=== PATIENT | female | born 1960 | race Caucasian/White ===

== ENCOUNTER 2016-12-07 20:07 | Inpatient (IN) ==
[2016-12-07] MEDS ORDERED: Ondansetron 4 MG/2 ML VIAL IVP ONE (20:41)
[2016-12-07] MEDS ORDERED: Pantoprazole 40 MG VIAL IVP ONE (20:41)
[2016-12-07] MEDS ORDERED: 0.9 % Sodium Chloride 1,000 ML IVC ONE (20:41)
--- NOTE | 2016-12-07 20:48 | Emergency Department Note ---
Disposition Clinical Impression: Bright red blood per rectum, Abdominal pain, acute, left lower quadrant, Generalized weakness, History of blood clots, Pain of left calf, Noncompliance with medications, Acute renal insufficiency, Fall from ground level, Left hip pain, Unable to ambulate GI bleed Qualifiers: GI bleed type/associated pathology: anorectal hemorrhage Qualified Code(s): K62.5 - Hemorrhage of anus and rectum Disposition: Admitted As Inpatient Condition: Good Time of Disposition: 00:14 GI Bleed HPI - General Chief complaint: ED General Medical Stated complaint: Multi Complaint Time Seen by Provider: 12/07/16 20:23 Source: patient, family Mode of arrival: ambulatory Limitations: no limitations Nursing Notes Reviewed: Yes Vital Signs Reviewed: Yes - History of Present Illness HPI Narrative: Patient is a 56-year-old female brought in via POC for GI bleed 3 days. Patient states that 3 days ago so bouts of vomiting and then passed out unknown amount of time. Unsure if she hit her head. Pt was taken to [facility] and was diagnosed with hypothermia and discharged home that evening. Patient states she started having bowel movements with occult bleeding 4, 3 days ago, 4, 2 days ago, 4, 1 days ago - Related Data Allergies Allergy/AdvReac Type Severity Reaction Status Date / Time codeine Allergy Hives Verified 12/07/16 20:11 Penicillins [PCN] Allergy See Verified 12/07/16 20:11 Comments Review of Systems: Patient complains of lightheadedness, vision change, generalized weakness, left lower extremity calf pain, left lower quadrant abdominal pain and chills All systems ED: reviewed and negative except as stated. 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 Time: 20:50 Reevaluation #2: Pt has occult blood per rectum with good sphincter tone Time: 21:48 - Consultations Consultation #1: Dr. Miles of [facility] reexamined CT scan abdomen and pelvis was found no fractures in the pelvis, iliac crests, or lumbar spine. There was lumbar spinal canal degeneration and mild stenosis. Time: 23:24 Consultation #2: Dr. Patrick the hospitalist has accepted patient for admission Time: 00:02 Vital Signs Temperature 98.3 F 12/07/16 20:12 Pulse Rate 104 12/07/16 20:12 Respiratory Rate 20 12/07/16 20:12 Blood Pressure 129/82 12/07/16 20:12 O2 Sat by Pulse Oximetry 96 12/07/16 20:12 Temperature 98.1 F 12/08/16 23:24 Pulse Rate 84 12/08/16 23:24 Respiratory Rate 17 12/08/16 23:24 Blood Pressure 173/86 12/08/16 23:24 O2 Sat by Pulse Oximetry 95 12/08/16 23:24 Oxygen Delivery Oxygen Delivery Room Air GI Bleed - [facility] Narrative Medical decision making narrative: Patient presents secondary to fall. 2 days ago from ground-level followed by multiple bouts of nausea and vomiting was seen at [facility] worked up and discharged. Discharge diagnosis was hypothermia. Patient tends began to have multiple bouts of bright red blood per rectum with follow-up weakness and increase pain and left lower back around the iliac crest and difficulty ambulating. Patient also has blurriness in vision bilaterally. Patient's concerning for GI bleed and weakness secondary to anemia. Cause of GI bleed differential included diverticulosis, AVM, polyp, GI cancer, aortoenteric fistula, mesenteric ischemia. CT abdomen and pelvis was taken which showed none of the above. Patient continued to have pain in her hip. Asked radiologists to take a closer look at the images concerning patient's hip and lower back. No fractures were found patient does have chronic degenerative changes and mild stenosis but nothing to explain patient's pain symptoms. On reexamination patient's pain was found not to be at her hip but down at the left calf. Patient does have intactdistal pulses at dorsal pedal and posterior tibial bilaterally equal 2+. Distal extremities are warm to touch equally. Patient then informed us that she was worried for a clot and then she stated she is supposed to be on Coumadin but has been offered past 2 months because she has been between providers. Earlier in patient's examination she was asked if she was on Coumadin but she said no and made no comment that she was not on Coumadin because of noncompliance. Patient does has an extensive cardiac history with heart surgery, endocarditis and A. fib. Patient's physical culpable test was positive the patient's hemoglobin is currently 14.3 even with patient's history of gross amounts of bright red blood per rectum for the past 3 days. Given the patient's is very small and thin almost cachectic, it does not add up. Patient does have an elevation of her creatinine for renal insufficiency that may be secondary to dehydration. Patient's was started on maintenance fluids normal saline. At this time plan is to admit patient for further treatment and evaluation for possible blood clots/DVT of the leg. Doppler will be ordered for the morning. Of note with considered starting patient back on Coumadin but patient currently has active GI bleed. - Lab Data Lab results reviewed: Yes I reviewed the patient's lab results. Lab results narrative: Short CBC 12/07/16 Range/Units 20:55 WBC 12.7 H (4.3-11.1) K/mcL Hgb 14.3 (11.5-15.4) g/dL Hct 44.2 (35.3-44.9) % Plt Count 165 (140-400) K/mcL Neutrophils # 9.4 H (1.6-8.9) K/mcL BMP 12/07/16 Range/Units 20:55 Sodium 139 (136-145) mEq/L Potassium 4.0 (3.5-4.5) mEq/L Chloride 103 (98-109) mEq/L Carbon Dioxide 25 (19-29) mEq/L BUN 26 H (7-20) mg/dL Creatinine 1.55 H (0.57-1.11) mg/dL Glucose 135 H (70-99) mg/dL Calcium 9.2 (8.6-10.8) mg/dL Cardiac Enzymes 12/07/16 Range/Units 20:55 Troponin I 0.01 (0-0.03) ng/mL Liver Function 12/07/16 Range/Units 20:55 Total Bilirubin 0.3 (0.2-1.2) mg/dL AST 104 H (5-34) Units/L ALT 53 (0-55) Units/L Alkaline Phosphatase 98 (38-126) Units/L Albumin 3.3 L (3.5-5.0) g/dL Result diagrams: 12/08/16 15:57 12/07/16 20:55 Lab Results 12/07/16 12/07/16 12/07/16 Range/Units 20:55 20:55 20:55 WBC 12.7 H (4.3-11.1) K/mcL RBC 5.09 H (3.82-4.97) M/mcL Hgb 14.3 (11.5-15.4) g/dL Hct 44.2 (35.3-44.9) % MCV 86.8 (83.0-100.0) fL MCH 28.1 (28.0-33.3) pg MCHC 32.4 (31.6-35.5) g/dL RDW 13.2 (11.5-14.5) % Plt Count 165 (140-400) K/mcL MPV 10.5 (9.4-12.4) fL Immature Gran % 0.3 (0-4) % Seg Neutrophils % 74.6 % Lymphocytes % 16.6 % Monocytes % 7.7 % Eosinophils % 0.6 % Basophils % 0.2 % Neutrophils # 9.4 H (1.6-8.9) K/mcL Lymphocytes # 2.1 (0.6-4.6) K/mcL Monocytes # 1.0 (0.0-1.3) K/mcL Eosinophils # 0.1 (0.0-0.6) K/mcL Basophils # 0.0 (0.0-0.2) K/mcL PT 12.3 H (9.4-12.1) Seconds INR 1.1 APTT 28.2 (26.0-36.0) Seconds Sodium 139 (136-145) mEq/L Potassium 4.0 (3.5-4.5) mEq/L Chloride 103 (98-109) mEq/L Carbon Dioxide 25 (19-29) mEq/L BUN 26 H (7-20) mg/dL Creatinine 1.55 H (0.57-1.11) mg/dL Est GFR ( Amer) 42 L (> 60) Est GFR (Non-Af Amer) 34 L (> 60) BUN/Creatinine Ratio 17 (6-26) Glucose 135 H (70-99) mg/dL Calculated Osmolality 295 (280-300) Lactic Acid (0.5-2.2) mmol/L Calcium 9.2 (8.6-10.8) mg/dL Magnesium 2.0 (1.6-2.6) mg/dL Total Bilirubin 0.3 (0.2-1.2) mg/dL AST 104 H (5-34) Units/L ALT 53 (0-55) Units/L Alkaline Phosphatase 98 (38-126) Units/L Troponin I (0-0.03) ng/mL Serum Total Protein 7.1 (6.0-8.3) g/dL Albumin 3.3 L (3.5-5.0) g/dL Globulin 3.8 H (2.4-3.5) g/dL Albumin/Globulin Ratio 0.9 L (1.1-2.2) Stool Occult Blood (Negative) Specimen Rejected Blood Type Antibody Screen Antibody Identification 12/07/16 12/07/16 12/07/16 Range/Units 20:55 20:55 20:55 WBC (4.3-11.1) K/mcL RBC (3.82-4.97) M/mcL Hgb (11.5-15.4) g/dL Hct (35.3-44.9) % MCV (83.0-100.0) fL MCH (28.0-33.3) pg MCHC (31.6-35.5) g/dL RDW (11.5-14.5) % Plt Count (140-400) K/mcL MPV (9.4-12.4) fL Immature Gran % (0-4) % Seg Neutrophils % % Lymphocytes % % Monocytes % % Eosinophils % % Basophils % % Neutrophils # (1.6-8.9) K/mcL Lymphocytes # (0.6-4.6) K/mcL Monocytes # (0.0-1.3) K/mcL Eosinophils # (0.0-0.6) K/mcL Basophils # (0.0-0.2) K/mcL PT (9.4-12.1) Seconds INR APTT (26.0-36.0) Seconds Sodium (136-145) mEq/L Potassium (3.5-4.5) mEq/L Chloride (98-109) mEq/L Carbon Dioxide (19-29) mEq/L BUN (7-20) mg/dL Creatinine (0.57-1.11) mg/dL Est GFR ( Amer) (> 60) Est GFR (Non-Af Amer) (> 60) BUN/Creatinine Ratio (6-26) Glucose (70-99) mg/dL Calculated Osmolality (280-300) Lactic Acid 1.5 (0.5-2.2) mmol/L Calcium (8.6-10.8) mg/dL Magnesium (1.6-2.6) mg/dL Total Bilirubin (0.2-1.2) mg/dL AST (5-34) Units/L ALT (0-55) Units/L Alkaline Phosphatase (38-126) Units/L Troponin I 0.01 (0-0.03) ng/mL Serum Total Protein (6.0-8.3) g/dL Albumin (3.5-5.0) g/dL Globulin (2.4-3.5) g/dL Albumin/Globulin Ratio (1.1-2.2) Stool Occult Blood (Negative) Specimen Rejected Blood Type B POSITIVE Antibody Screen POSITIVE Antibody Identification Anti-K 12/07/16 12/08/16 12/08/16 Range/Units 22:00 04:36 10:52 WBC 12.9 H (4.3-11.1) K/mcL RBC 4.71 (3.82-4.97) M/mcL Hgb 13.2 13.1 (11.5-15.4) g/dL Hct 40.5 41.3 (35.3-44.9) % MCV 87.7 (83.0-100.0) fL MCH 27.8 L (28.0-33.3) pg MCHC 31.7 (31.6-35.5) g/dL RDW 13.3 (11.5-14.5) % Plt Count 131 L (140-400) K/mcL MPV 10.8 (9.4-12.4) fL Immature Gran % (0-4) % Seg Neutrophils % % Lymphocytes % % Monocytes % % Eosinophils % % Basophils % % Neutrophils # (1.6-8.9) K/mcL Lymphocytes # (0.6-4.6) K/mcL Monocytes # (0.0-1.3) K/mcL Eosinophils # (0.0-0.6) K/mcL Basophils # (0.0-0.2) K/mcL PT (9.4-12.1) Seconds INR APTT (26.0-36.0) Seconds Sodium (136-145) mEq/L Potassium (3.5-4.5) mEq/L Chloride (98-109) mEq/L Carbon Dioxide (19-29) mEq/L BUN (7-20) mg/dL Creatinine (0.57-1.11) mg/dL Est GFR ( Amer) (> 60) Est GFR (Non-Af Amer) (> 60) BUN/Creatinine Ratio (6-26) Glucose (70-99) mg/dL Calculated Osmolality (280-300) Lactic Acid (0.5-2.2) mmol/L Calcium (8.6-10.8) mg/dL Magnesium (1.6-2.6) mg/dL Total Bilirubin (0.2-1.2) mg/dL AST (5-34) Units/L ALT (0-55) Units/L Alkaline Phosphatase (38-126) Units/L Troponin I (0-0.03) ng/mL Serum Total Protein (6.0-8.3) g/dL Albumin (3.5-5.0) g/dL Globulin (2.4-3.5) g/dL Albumin/Globulin Ratio (1.1-2.2) Stool Occult Blood Positive A (Negative) Specimen Rejected Blood Type Antibody Screen Antibody Identification 12/08/16 Range/Units 10:52 WBC (4.3-11.1) K/mcL RBC (3.82-4.97) M/mcL Hgb (11.5-15.4) g/dL Hct (35.3-44.9) % MCV (83.0-100.0) fL MCH (28.0-33.3) pg MCHC (31.6-35.5) g/dL RDW (11.5-14.5) % Plt Count (140-400) K/mcL MPV (9.4-12.4) fL Immature Gran % (0-4) % Seg Neutrophils % % Lymphocytes % % Monocytes % % Eosinophils % % Basophils % % Neutrophils # (1.6-8.9) K/mcL Lymphocytes # (0.6-4.6) K/mcL Monocytes # (0.0-1.3) K/mcL Eosinophils # (0.0-0.6) K/mcL Basophils # (0.0-0.2) K/mcL PT (9.4-12.1) Seconds INR APTT (26.0-36.0) Seconds Sodium (136-145) mEq/L Potassium (3.5-4.5) mEq/L Chloride (98-109) mEq/L Carbon Dioxide (19-29) mEq/L BUN (7-20) mg/dL Creatinine (0.57-1.11) mg/dL Est GFR ( Amer) (> 60) Est GFR (Non-Af Amer) (> 60) BUN/Creatinine Ratio (6-26) Glucose (70-99) mg/dL Calculated Osmolality (280-300) Lactic Acid (0.5-2.2) mmol/L Calcium (8.6-10.8) mg/dL Magnesium (1.6-2.6) mg/dL Total Bilirubin (0.2-1.2) mg/dL AST (5-34) Units/L ALT (0-55) Units/L Alkaline Phosphatase (38-126) Units/L Troponin I (0-0.03) ng/mL Serum Total Protein (6.0-8.3) g/dL Albumin (3.5-5.0) g/dL Globulin (2.4-3.5) g/dL Albumin/Globulin Ratio (1.1-2.2) Stool Occult Blood (Negative) Specimen Rejected Contaminated Blood Type Antibody Screen Antibody Identification - Radiology Data Radiology results reviewed: Yes I reviewed the patient's radiology results. Chest X-Ray 12/07/16 20:41 IMPRESSION: 1. Hyperinflated lungs which probably represent underlying emphysema. 2. Otherwise no acute cardiopulmonary findings. D/ / 12/07/2016 21:19:44 Saw Patel MD / mitchel Interpreting Provider: Saw Patel MD Abdomen/Pelvis CT 12/07/16 21:46 IMPRESSION: 1. The study is limited due to lack of IV contrast. 2. Otherwise no definite acute findings within the abdomen and pelvis. 3. Small 16 mm benign left adrenal adenoma, which no further follow-up or workup is necessary. 4. Bi-iliac arterial stents in place. The patency of which is not evaluated on this noncontrast study. 5. Few scattered punctate calcifications associated with the pancreas, which could represent chronic pancreatitis. 6. A few scattered colonic diverticula without evidence of diverticulitis. D/ / 12/07/2016 22:53:23 Saw Patel MD / mitchel Interpreting Provider: Saw Patel MD - EKG Data EKG attestation: Yes I reviewed and interpreted this EKG. EKG results narrative: EKG taken 12/07/2016 2032 hrs. shows sinus tachycardia with first degree AV block, patient's QT interval looks close for QT prolongation. No ST elevations or depressions and Attestation Statement - Attestation Attestation: I personally interviewed and examined this patient and my medical decision- making was reviewed with the Resident Physician, Dr. Roque. I agree with the documented findings, disposition and treatment plan as described except to the extent set forth below. Patient is a 56-year-old white female who presents to the emergency department with a family member with multiple complaints today. Apparently patient was initially evaluated on Wednesday at an outside medical facility emergency Department for a syncopal episode that she had at home. Patient states she was outside on her property and had a sudden onset of nausea and vomiting. Patient states she had repeated episodes of nonbloody nonbilious emesis then was very lightheaded and became diaphoretic and had a syncopal episode. Feeling of vertigo to the emergency department for evaluation and she states she was diagnosed with "hypothermia" was observed for a short period of time and then discharged home. Patient states upon arriving home she is "just not been feeling well", complaining of some exacerbation of low back pain which she has chronically since falling, pain that radiates down into the left lower extremity. Patient also complains of some generalized abdominal pain and bright red per rectum which she has been seeing in her stool for the last 3 days. Patient denies any history of anticoagulation, no prior history of GI bleeding. Patient states that since this time she has been feeling gradually increasing generalized weakness and difficulty ambulating due to her worsening generalized weakness. Patient denies any focal weakness, numbness and speech is clear. I agree with patient's physical exam findings as documented. On physical exam patient was found to be grossly guaiac positive but vital signs are stable and she is in no acute distress. 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 She underwent lab evaluation as well as CT imaging of her abdomen and pelvis for further evaluation of this recent abdominal pain with bright red blood per rectum. We also asked that they visualize her lumbar spine as she is complaining of this low back pain to the that she has not injured anything in the fall related to her syncope that she was evaluated for on Wednesday. EKG shows no acute ischemic changes. Laboratory assessment shows acute renal insufficiency, suspect some mild dehydration. No other lab abnormalities were appreciated. CT abdomen and pelvis was negative for any acute process. The decision was made due to overlying weakness, dehydration, and rectal bleeding that we would admit the patient for further evaluation and management. 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 Patient is hemodynamically stable and has tenderness to palpation in the left calf muscle. She is neurovascularly intact with good distal pulses and color. At this time we spoke to the hospitalist for admission and also placed an order for the morning for a Doppler ultrasound of the left lower extremity. We cannot anticoagulate the patient until that time due to her rectal bleeding. Hemoglobin and hematocrit are within normal limits at this time. Hospitalist accepted the patient for admission for further evaluation and management.
[2016-12-07 21:03] LABS: Basophils % 0.2 %; Eosinophils # 0.1 K/mcL (0.0-0.6); Eosinophils % 0.6 %; Hematocrit 44.2 % (35.3-44.9); Hemoglobin 14.3 g/dL (11.5-15.4); Immature Granulocytes % 0.3 % (0-4); Lymphocytes # 2.1 K/mcL (0.6-4.6); Lymphocytes % 16.6 %; Mean Corpuscular HGB Conc 32.4 g/dL (31.6-35.5); Mean Corpuscular Hemoglobin 28.1 pg (28.0-33.3); Mean Corpuscular Volume 86.8 fL (83.0-100.0); Mean Platelet Volume 10.5 fL (9.4-12.4); Monocytes % 7.7 %; Neutrophils # 9.4 K/mcL (1.6-8.9); Platelet Count 165 K/mcL (140-400); Red Blood Count 5.09 M/mcL (3.82-4.97); Red Cell Distribution Width 13.2 % (11.5-14.5); Segmented Neutrophils % 74.6 %
[2016-12-07 21:09] LABS: INR 1.1; Prothrombin Time 12.3 Seconds (9.4-12.1)
[2016-12-07 21:11] LABS: Activated Partial Thrombo Time 28.2 Seconds (26.0-36.0)
[2016-12-07 21:16] LABS: Albumin 3.3 g/dL (3.5-5.0); Albumin/Globulin Ratio 0.9 (1.1-2.2); Calcium 9.2 mg/dL (8.6-10.8); Globulin 3.8 g/dL (2.4-3.5); Total Protein 7.1 g/dL (6.0-8.3)
[2016-12-07 22:11] LABS: Bilirubin,Total 0.3 mg/dL (0.2-1.2)
[2016-12-07] MEDS ORDERED: *HR* HYDROcodone/Acet 5/325 mg TABLET PO ONE (22:22)
[2016-12-07] MEDS ORDERED: *HR* OxyCODONE/APAP 5/325 TABLET PO ONE (22:43)
[2016-12-07] MEDS ORDERED: 0.9 % Sodium Chloride 1,000 ML IVC SCH (23:45)
--- NOTE | 2016-12-08 03:54 | Internal Med History&Physical ---
Date of Encounter: 12/08/16 Time of Encounter: 02:00 Assessment and Plan (1) DVT prophylaxis Current visit: Yes Status: Acute We will hold pharmacological prophylaxis due to acute GI bleed. Avoid SCDs due to pain in the left calf and possible DVT. We will encourage ambulation once patient can tolerate bearing weight. (2) GI bleed Current visit: Yes Status: Acute Patient reports 3 days of multiple episodes of rectal bleeding. FOBT done in the emergency department was positive. Consult gastroenterology. Nothing by mouth. IV Protonix. Hemoglobin and hematocrit every 6 hours. Qualifiers: GI bleed type/associated pathology: anorectal hemorrhage Qualified Code(s) : K62.5 - Hemorrhage of anus and rectum (3) Bright red blood per rectum Current visit: Yes Status: Acute (4) History of blood clots Current visit: Yes Status: Acute Hold warfarin due to acute GI bleed. INR is 1.1 consistent with the history she gives that she has not been taking warfarin for 2 months. (5) Pain of left calf Current visit: Yes Status: Acute We will treat this with oxycodone. We will obtain lower extremity venous Dopplers to rule out DVT. Hold off on anticoagulation due to active GI bleed. (6) Noncompliance with medications Current visit: Yes Status: Acute We will emphasize the importance of medication compliance. We will provide an appointment in resident clinic upon discharge. (7) COPD (chronic obstructive pulmonary disease) Current visit: Yes Status: Acute No evidence of exacerbation. We will treat this with inhaled albuterol and Atrovent. Qualifiers: COPD type: chronic bronchitis Chronic bronchitis type: simple Qualified Code(s): J41.0 - Simple chronic bronchitis (8) Tobacco abuse Current visit: Yes Status: Acute I advised smoking cessation. Internal Medicine - H&P: HPI Chief complaint: Lower extremity pain Admitted From: Emergency Dept Plans for Post Hospital Care: Home History of present illness: Ms. Chow is a 56 year old female with past medical history significant for atrial fibrillation, previously on anticoagulation with Coumadin, not currently anticoagulated who presented to the hospital for evaluation flank pain as well as rectal bleeding. 3 days ago she had an episode of syncope and she presented to [facility] she was evaluated, found to have hypothermia and discharged home. Soon thereafter she started having multiple episodes of rectal bleeding 3-4 at home without abdominal pain or rectal pain. Around the same time she started having left lower extremity sharp pain which she grades as severe, worse with bearing weight, makes making it difficult for her to walk. The course has been increasing over the last 2 days and she noted some associated swelling in the left lower extremity. A 10 point review of systems positive positive for depression, nausea, rectal bleed as above, shortness of breath, wheezing, chest pain, urinary frequency, chronic joint aches and pains. Past Med Surg Social Fam HX - Past Medical History Medical history: atrial fibrillation, COPD, DVT, hypertension, other Psychiatric history: no psych history - Past Surgical History Surgical History: angioplasty/stent, heart valve replacement - Social History Smoking Status: Current every day smoker Packs per day: 1 Smokeless Tobacco Status: No Alcohol use: none Drug use: none - Family History Father Hx Family Endocrine Disorder: Yes (DIABETES MELLITUS.) Internal Medicine - H&P: Meds Albuterol Neb [AccuNeb] 12/08/16 [History] Albuterol Sulfate [Proair Respiclick] 180 mcg IH QID PRN 12/08/16 [History] Gabapentin [Neurontin] 300 mg PO TID 12/08/16 [History] Isosorbide MONOnitrate [Isosorbide Mononitrate] 10 mg PO TID 12/08/16 [History] Metoprolol Tartrate [Lopressor] 12.5 mg PO TID 12/08/16 [History] Oxycodone HCl/Acetaminophen [Percocet 10-325 mg Tablet] 1 each PO Q6HR PRN 12/08 [History] Warfarin Sodium [Coumadin] 3 mg PO QTUTHSA 12/08/16 [History] Warfarin Sodium [Coumadin] 4 mg PO [id number] 12/08/16 [History] Allergies codeine Allergy (Verified 12/07/16 20:11) Hives Penicillins [PCN] Allergy (Verified 12/07/16 20:11) See Comments All Systems PM: A 10-system review of systems was performed and is negative for pertinent findings except as documented above in the HPI. - Constitutional Vitals: Temp Pulse Resp BP Pulse Ox 98.3 F 94 16 127/86 94 12/08/16 03:35 12/08/16 03:35 12/08/16 03:35 12/08/16 03:35 12/08/16 03:35 General appearance: Present: A&O X 3 - Eye Eye exam: Present: PERRL, conjuntiva pink, sclera anicteric Pupils: Present: PERRL - Respiratory Respiratory exam: Present: prolonged expiratory phase, wheezes (Bilateral expiratory wheezes). Absent: accessory muscle use, rales, rhonchi - Cardiovascular Cardiovascular exam: Present: RRR, +S1, +S2. Absent: diastolic murmur, gallop, rubs, systolic murmur - GI/Abdominal GI/Abdominal exam: Present: normal bowel sounds, soft, no peritoneal signs. Absent: distended, tenderness - Extremities Exam Extremities exam: Present: pedal edema (Left lower extremity nonpitting edema and calf compression tenderness), warm, radial pulses palpable and symmetrical. Absent: calf tenderness, cyanotic - Neurological Exam Neurological exam: Present: CN II-XII intact, oriented X3, no focal deficits. Absent: pronater drift, facial droop, speech deficit - Skin Skin exam: Present: dry, intact Internal Med - H&P Results - Labs CBC & Chem 7: 12/07/16 20:55 12/07/16 20:55
[2016-12-08] MEDS ORDERED: Acetaminophen 325 MG TABLET PO PRN (04:09)
[2016-12-08] MEDS ORDERED: Naloxone 0.4 MG/ML INJ IVP PRN (04:09)
[2016-12-08] MEDS: *HR* HYDROmorphone (PF) 1 MG/ML SYRINGE IVP PRN ×3 (05:26→14:13)
[2016-12-08] MEDS: Pantoprazole 40 MG VIAL IVP SCH ×2 (05:28→17:16)
[2016-12-08 05:51] LABS: Hematocrit 40.5 % (35.3-44.9); Hemoglobin 13.2 g/dL (11.5-15.4)
[2016-12-08 06:08] LABS: Bilirubin,Urine Negative (Negative); Blood,Urine Small (Negative); Clarity,Urine Clear (Clear); Color,Urine Yellow (Yellow); Glucose,Urine (UA) Normal (Normal); Ketones,Urine Negative (Negative); Leukocyte Esterase,Urine Negative (Negative); Nitrite,Urine Negative (Negative); Protein,Urine Negative (Neg-Trace); Specific Gravity,Urine 1.015 (1.010-1.025); Urobilinogen,Urine Normal (Normal)
[2016-12-08 06:10] LABS: Bacteria,Urine None Seen per hpf (None-Few); Hyaline Casts,Urine None Seen per lpf (None-Few); RBC,Urine 0-3 per hpf (0-3); Squamous Epithelial Cell,Urine Moderate per lpf (None-Few); WBC,Urine 0-3 per hpf (0-3)
[2016-12-08] MEDS: *HR* HYDROcodone/Acet 5/325 mg TABLET PO PRN ×3 (08:32→19:30)
[2016-12-08] MEDS: 0.9 % Sodium Chloride 1,000 ML IVC SCH ×3 (08:33→22:25)
--- NOTE | 2016-12-08 09:48 | Vascular/Endovasc Consult Note ---
Date of Encounter: 12/08/16 Time of Encounter: 08:30 Assessment and Plan (1) Peripheral vascular disease with pain at rest Current Visit: Yes Status: Chronic The patient has a history of peripheral vascular disease. Her CT scan reveals bilateral iliac stents. They appear to be malpositioned within the aorta, particularly on the left. She has an absent left femoral pulse. She has monophasic left tibial signals. Her left REGGIE is consistent with severe disease. She has motor and sensory function in the left lower extremity. She has been scheduled for an angiogram. The risks, benefits and alternatives were discussed and all questions were answered. She expressed understanding and wishes to proceed. The patient may benefit from anticoagulation at this time. Given her recent rectal bleeding, she will receive a low dose heparin drip. Continue with serial hemoglobins. The patient has been typed and screened. (2) GI bleed Current Visit: Yes Status: Chronic The patient had bright red blood per rectum, a GI consult has been ordered. Qualifiers: GI bleed type/associated pathology: anorectal hemorrhage Qualified Code(s) : K62.5 - Hemorrhage of anus and rectum (3) Acute renal insufficiency Current Visit: Yes Status: Acute The patient has an elevated creatinine. She is currently being hydrated. She will need an angiogram. She will receive mucomyst prior to the procedure. (4) COPD (chronic obstructive pulmonary disease) Current Visit: Yes Status: Acute Qualifiers: COPD type: chronic bronchitis Chronic bronchitis type: simple Qualified Code(s): J41.0 - Simple chronic bronchitis (5) Tobacco abuse Current Visit: Yes Status: Acute - History of Present Illness Consult date: 12/08/16 Requesting physician: Omar Patrick Consult reason: Peripheral vascular disease Chief complaint: Left leg pain History of present illness: Ms. Chow is a 56 year old female who has a history of coronary artery disease , atrial fibrillation, COPD and hypertension. She reports that she was not feeling well last week. She reports that she experienced a syncopal episodeand when she awoke, she had left lower extremity pain. She initially went to [facility] and was evaluated. She was told that she had hypothermia and was discharged. The patient continued to have have increased pain in her left leg. She developed swelling and then came to [facility]. She was seen in the ER. She was noted to have bright red blood per rectum and was admitted for a GI bleed. She then underwent a venous duplex and was found to have a left REGGEI of 0.18. Vascular surgery was then consulted for further evaluation. She denies chest pain or shortness of breath. Past Med Surg Social Fam HX - Past Medical History Medical history: atrial fibrillation, COPD, DVT, hypertension, other Psychiatric history: no psych history - Past Surgical History Surgical History: angioplasty/stent, heart valve replacement - Social History Smoking Status: Current every day smoker Packs per day: 1 Smokeless Tobacco Status: No Alcohol use: none Drug use: none - Family History Father Hx Family Endocrine Disorder: Yes (DIABETES MELLITUS.) Medications and Allergies Albuterol Neb [AccuNeb] 3 ml IH Q4-6H PRN 12/08/16 [History] Albuterol Sulfate [Proair Respiclick] 180 mcg IH QID PRN 12/08/16 [History] Gabapentin [Neurontin] 300 mg PO TID 12/08/16 [History] Lisinopril-HCTZ 10-12.5 [Prinzide 10-12.5] 1 tab PO DAILY 12/08/16 [History] Methocarbamol [Robaxin] 500 mg PO Q8H 12/08/16 [History] Metoprolol Tartrate [Lopressor] 50 mg PO BID 12/08/16 [History] Oxycodone HCl/Acetaminophen [Percocet 10-325 mg Tablet] 1 each PO Q6HR PRN 12/08 [History] Allergies codeine Allergy (Verified 12/07/16 20:11) Hives Penicillins [PCN] Allergy (Verified 12/07/16 20:11) See Comments All Systems Review: A 10-system review of systems was performed and is negative for pertinent findings except as documented above in the HPI. Exam Vital Signs, Last 4 Hours Temp Pulse Resp BP Pulse Ox 12/08/16 07:32 98.3 F 100 14 127/92 94 General: Present: Conversant HEENT: Present: Trachea midline, Pupils equal Neck: Absent: JVD, Lymphadenopathy, Left Carotid bruit, Right Carotid bruit Cardiac: Present: Irregular Rhythm Lungs: Present: Normal Breath Sounds, No Wheeze, Rales, Rhonchi Neuro: Present: Alert and responsive, Cranial nerves grossly intact, Motor nerves grossly intact, Sensory nerves grossly intact Abdomen: Present: Soft, Non-tender. Absent: Masses Vascular: Present: Normal capillary refill, Pulse, diminished (left pedal signals are monophasic. Left femoral pulse is absent), Color/Temperature (feet warm), Other Skin: Present: Other (left calf tenderness) Musculoskeletal: Present: No Chest Wall Tenderness Consult Discharge Plan - Plan Instructions: Angiogram (GEN) Referrals: Edda Peña MD [Primary Care Provider] -
[2016-12-08] MEDS ORDERED: *HR* Heparin 5,000 UNIT/ML VIAL IVP ONE (10:08)
[2016-12-08] MEDS ORDERED: *HR* Heparin 5,000 UNIT/ML VIAL IVP PRN (10:08)
[2016-12-08] MEDS ORDERED: Heparin 25,000 UNIT/500 ML D5W 25,000 UNIT/500 ML MLS IVC SCH (10:15)
[2016-12-08] MEDS: *HR* Acetylcysteine 20% 600 MG/3 ML ORAL SYRINGE PO SCH ×2 (11:01→21:09)
[2016-12-08] MEDS ORDERED: 0.9 % Sodium Chloride 1,000 ML ONE ×2 (11:03→12:37)
[2016-12-08] MEDS ORDERED: Heparin 1,000 UNITS/500 mL NS 500 ML ONE (11:03)
[2016-12-08] MEDS ORDERED: *HR* Heparin 10,000 UNIT/10 ML VIAL ONE (11:03)
[2016-12-08] MEDS: Ipratropium/Albuterol Neb 3 ML IH SCH ×3 (11:03→22:36)
--- NOTE | 2016-12-08 11:07 | Gastroenterology Consult Note ---
<Jamil Walton Jacinta - Last Filed: 12/08/16 11:04> Date of Encounter: 12/08/16 Time of Encounter: 10:30 - Assessment and plan (1) Melena Current Visit: Yes Status: Acute Assessment and plan: Hgb 14.3 on admission and 13.2 this morning. Fecal occult blood test was positive in the ED. Plan for EGD tomorrow to r/o esophagitis, gastritis, duodenitis, PUD, MW tear, or AVM. Keep NPO at midnight. (2) Bright red blood per rectum Current Visit: Yes Status: Acute Assessment and plan: Plan for colonoscopy tomorrow. Clear liquid diet today, no red or purple. NPO at midnight. If unable tolerate NuLytely please use MiraLAX prep. If not clear by 6 AM, give 2 tap water enemas. (3) Peripheral vascular disease with pain at rest Current Visit: Yes Status: Chronic Assessment and plan: Heparin drip started per vascular surgery. Will need to hold the heparin drip 4- 6 hours prior to EGD/colonoscopy. - Time Spent With Patient Total time spent is greater than 50% in coordination of care (as documented) at patient's floor/unit and/or counseling patient: GI History of Present Illness - Data of Consult Patient: new to practice Consult date: 12/08/16 Requesting Physician: Carlie Cyr - Consult Narrative Reason for consult: Acute GI bleed History of present illness: Ms. Chow is a 56 year old female with PMHx of A. fib-previously on Coumadin- not currently anticoagulated, COPD, DVT, HTN who presented with flank pain and rectal bleeding. She was recently seen at [facility] due to syncope and was found to have hypotermia and discharged home. She reports bright red blood per rectum for 3 days that started on December 04. Wednesday night and Wednesday morning she reports black tarry stools. She also developed LLE pain, worse with bearing weight, and difficulty ambulating. Vascular surgery has been consulted. We were consulted to evaluate her rectal bleeding. Hgb on admission was 14.3 and this AM Hgb 13.2. Procedures: No record NSAIDs: None Anticoagulation: None Past Med Surg Social Fam HX - Past Medical History Medical history: atrial fibrillation, COPD, DVT, hypertension, other Psychiatric history: no psych history - Past Surgical History Surgical History: angioplasty/stent, heart valve replacement - Social History Smoking Status: Current every day smoker Packs per day: 1 Smokeless Tobacco Status: No Alcohol use: none Drug use: none - Family History Father Hx Family Endocrine Disorder: Yes (DIABETES MELLITUS.) - Gastrointestinal Gastrointestinal: Present: as per HPI - Constitutional Constitutional: as per HPI - EENT Eyes: as per HPI Ears: Present: as per HPI Nose, mouth and throat: Present: as per HPI - Cardiovascular Cardiovascular ROS: Present: as per HPI - Respiratory Respiratory IM: Present: as per HPI - Genitourinary Genitourinary: Absent: change in color, Urinary frequency - Neurological ROS Neurological GI: Present: as per HPI - Hematologic/Lymphatic Hematologic/Lymphatic pediatric: Present: as per HPI - Musculoskeletal Musculoskeletal ROS GI: Present: as per HPI - Integumentary Integumentary GI: Present: as per HPI - Psychiatric ROS Psychiatric GI: Present: as per HPI - Endocrine Endocrine IM: Present: as per HPI - Constitutional Vitals: Temp Pulse Resp BP Pulse Ox 98.3 F 100 14 127/92 94 12/08/16 07:32 12/08/16 07:32 12/08/16 07:32 12/08/16 07:32 12/08/16 07:32 General appearance: Present: cooperative, A&O X 3, no acute distress, answers questions appropriately - Head Head exam: Present: atraumatic, normocephalic - Eye Eye exam: Present: normal appearance, sclera anicteric - ENT ENT exam: Present: mucous membranes dry - Neck Neck exam general surgery: Present: normal inspection, trachea midline - Respiratory Respiratory exam: Present: CTAB. Absent: rales, rhonchi - Cardiovascular Cardiovascular exam: Present: RRR, +S1, +S2 - GI/Abdominal GI/Abdominal exam: Present: soft, no peritoneal signs. Absent: distended, firm , guarding, tenderness - Rectal Rectal exam: Present: deferred - Extremities Exam Extremities exam: Present: warm Additional comments: LLE edema - Neurological Exam Neurological exam: Present: no focal deficits - Psychiatric Psychiatric exam: Present: normal affect, normal mood - Skin Skin exam: Present: dry, intact, normal color, warm Results - Labs CBC & Chem 7: 12/08/16 04:36 12/07/16 20:55 Labs: Last Result Calcium 9.2 mg/dL (8.6-10.8) 12/07/16 20:55 Troponin I 0.01 ng/mL (0-0.03) 12/07/16 20:55 Stool Occult Blood Positive (Negative) A 12/07/16 22:00 Entire Visit Hgb 13.2 g/dL (11.5-15.4) 12/08/16 04:36 Hct 40.5 % (35.3-44.9) 12/08/16 04:36 PT 12.3 Seconds (9.4-12.1) H 12/07/16 20:55 Total Bilirubin 0.3 mg/dL (0.2-1.2) 12/07/16 20:55 AST 104 Units/L (5-34) H 12/07/16 20:55 ALT 53 Units/L (0-55) 12/07/16 20:55 - ABG ABG results: PT/INR, D-dimer PT 12.3 Seconds (9.4-12.1) H 12/07/16 20:55 Consult Discharge Plan - Plan Instructions: Angiogram (GEN) Referrals: Edda Peña MD [Primary Care Provider] - <Marina Méndez - Last Filed: 12/08/16 17:10> Date of Encounter: 12/08/16 Time of Encounter: 15:00 - Time Spent With Patient Total time spent is greater than 50% in coordination of care (as documented) at patient's floor/unit and/or counseling patient: GI History of Present Illness - Data of Consult Requesting Physician: Carlie Cyr - Consult Narrative History of present illness: Ms. Chow is a 56 year old female - Constitutional Vitals: Temp Pulse Resp BP Pulse Ox 98.3 F 80 16 142/98 94 12/08/16 13:30 12/08/16 16:00 12/08/16 15:19 12/08/16 16:00 12/08/16 15:19 Results - Labs CBC & Chem 7: 12/08/16 15:57 12/07/16 20:55 Labs: Last Result Calcium 9.2 mg/dL (8.6-10.8) 12/07/16 20:55 Troponin I 0.01 ng/mL (0-0.03) 12/07/16 20:55 Stool Occult Blood Positive (Negative) A 12/07/16 22:00 Entire Visit Hgb 12.4 g/dL (11.5-15.4) 12/08/16 15:57 Hct 37.1 % (35.3-44.9) 12/08/16 15:57 PT 12.3 Seconds (9.4-12.1) H 12/07/16 20:55 Total Bilirubin 0.3 mg/dL (0.2-1.2) 12/07/16 20:55 AST 104 Units/L (5-34) H 12/07/16 20:55 ALT 53 Units/L (0-55) 12/07/16 20:55 - ABG ABG results: PT/INR, D-dimer PT 12.3 Seconds (9.4-12.1) H 12/07/16 20:55 - Attending Attestation I examined this patient and my medical decision-making was reviewed with the Resident Physician. I agree with the documented findings, disposition and treatment plan as described except to the extent set forth below.
[2016-12-08 11:15] LABS: Hematocrit 41.3 % (35.3-44.9); Hemoglobin 13.1 g/dL (11.5-15.4); Mean Corpuscular HGB Conc 31.7 g/dL (31.6-35.5); Mean Corpuscular Hemoglobin 27.8 pg (28.0-33.3); Mean Corpuscular Volume 87.7 fL (83.0-100.0); Mean Platelet Volume 10.8 fL (9.4-12.4); Platelet Count 131 K/mcL (140-400); Red Blood Count 4.71 M/mcL (3.82-4.97); Red Cell Distribution Width 13.3 % (11.5-14.5)
[2016-12-08] MEDS ORDERED: *HR* Midazolam HCl 2 MG/2 ML VIAL ONE (11:55)
--- NOTE | 2016-12-08 11:58 | Pre-Sedation Evaluation ---
Pre-sedation evaluation - Pre-sedation checklist Date of procedure: 12/08/16 Procedure: Angiogram Recent Vitals: Last Vital Signs Temp 98.3 F 12/08/16 07:32 Pulse 100 12/08/16 07:32 Resp 16 12/08/16 11:03 BP 127/92 12/08/16 07:32 Pulse Ox 94 12/08/16 11:03 H&P (including ROS) documented in medical record: Yes Previous reaction to sedatives/anesthetics: No Dietary Status: NPO after Midnight Dentition: No loose teeth or bridges ASA Classification *see protocol: CLASS III-Severe systemic disease Plan of Care: Pt appropriate candidate for procedure/moderate/conscious sedation , Risks/benefits of procedure/sedation discussed w/ patient/family
[2016-12-08] MEDS ORDERED: *HR* FentaNYL (PF) 100 MCG/2 ML VIAL ONE (12:03)
--- NOTE | 2016-12-08 12:37 | Procedure Note ---
Date of procedure: 12/08/16 Pre-op diagnosis: Peripheral vascular disease with rest pain Post-op diagnosis: same Procedure: Aortogram with runoff via right common femoral artery with 4 uzbek sheath. Direct pressure held for hemostasis. Anesthesia: local, IV sedation (moderate conscious sedation) Surgeon: Gustavo Moore Estimated blood loss (cc): 1 Pathology: none sent Condition: stable (no complications) Disposition: floor
--- NOTE | 2016-12-08 13:11 | Invasive Diagnostic Lab Proc ---
Name: Enrico Chow Date of Study: 12/08/2016 Date: 1960 Ht: 163.0 in Medical Record#: [id number] Age: 56 Wt: 45 lb Gender: Female BSA: 1.45 Order #: [id number] BMI: 16.94 Physicians Performing MD: Gustavo Moore MD Referring MD: Referring MD: Staff Name Position Time In Beckie Harris RT (R) Monitor John Wu RN Scrub Beckie Harris RT (R) Scrub Tobias Diallo RT (R) Monitor Indications Diminished or Absent Pulses Procedures Performed AORTOGRAPHY, ABDOMINAL S&I AORTOGRAPHY EXT Bilat S&I Pre-Procedure Checklist Informed consent is complete signed and on chart. H&P is on chart. ID band is on and ID verified with patient. Patient NPO for procedure The procedure was described for the patient and questions were answered. Blood Pressure: 152/98 ECG is on chart. Rhythm: Sinus Tachycardia Plan of Care Patient will tolerate the procedure without complications. Adequate level of comfort will be maintained. Hemodynamics will remain stable Patient will recover from procedure without complications. Respiratory function will be maintained. Cardiac rhythm will remain stable. Patient temperature will be maintained. Patient and/or family have verbalized understanding of the procedure. Patient Education Chief Complaint/Reason for Test: Peripheral angiogram Developmental Category: Geriatric (65+ years) Learning Barriers: None Education Needs: Procedure Education Method: Verbal Information Taught: Peripheral angiogram Educational Evaluation: Able to repeat information Intravenous Access Time IV Size Location DC'd Fluid/Drip Rate Units RN 22g 1" Patent On Arrival Rt Arm 0.9NaCl 25 ml/hr John Wu RN Allergies Penicillins codeine Vital Signs Time BP Systolic BP Diastolic HR O2 Sats ASA 152 98 110 99 11:54 AM 11:54 AM 12:25 PM 158 92 105 92 Procedure Medications Time Medication Dose Units Method Route 11:54 AM Oxygen 2 L/min nasal cannula 11:55 AM Versed 1 mg Intravenous 12:02 PM Fentanyl 25 mcg Intravenous 12:04 PM Lidocaine 2% 5 ml Subcutaneous 12:08 PM Fentanyl 50 mcg Intravenous 12:25 PM Fentanyl 25 mcg Intravenous ASA Classification: CLASS II- Mild systemic disease (i.e. well-controlled diabetes, hypertension, asthma, cigarette smoking) Kiel Score Preprocedure Postprocedure Activity 2- Moves 4 extremities sustained head lift Activity Circulation 1- SBP+/= 20 - 50 points of pre-anesthetic level Circulation Consciousness 2- Awake and alert oriented x 3 Consciousness O2 Saturation 2- Able to maintain O2 satruation of 92% on room air O2 Saturation Respiratory 2- Able to deep breathe and cough well Respiratory Total Score 9 Total Score Contrast: Isovue 250- 150ml Contrast Amount: 74 ml Fluoro Dose: 279 mGy Procedure Log Time Note Entered By 11:30 AM Pt arrived to environmental laboratory technician 1 at 11:30 tsites 11:54 AM Tash Bryant RT (R) Position: Monitor Time in: 11:54 tsites 11:54 AM John Wu RN Position: Scrub Time in: 11:54 tsites 11:54 AM Beckie Harris RT (R) Position: Scrub Time in: 11:54 tsites 11:54 AM Case delayed: No tsites 11:54 AM Physician arrived 11:54 tsites 11:54 AM Meet and greet completed tsites 11:54 AM Sign in performed according to hospital policy. tsites 11:54 AM Procedure start 11:54 tsites 11:54 AM Hair removed from procedure site in procedure lab using clippers. Bilateral groin prepped with Chloraprep by Tash Bryant (R), safety strap applied then patient was draped. Skin intact. tsites 11:54 AM 11:54 Oxygen at 2 L/min per nasal cannula by John Wu RN tsites 11:54 AM Time: 11:54 Is patient comfortable and pain free?: Yes tsites 11:54 AM Time: 11:54LOC: 5 = Fully awake and oriented or at pre-proc level tsites 11:54 AM Patient charges- Angio tray pack, Pulse Oximetry and ACIST tubing and transducer tsites 11:56 AM 11:55 Versed 1 mg Intravenous Given by John Wu RN tsites 12:02 PM 12:02 Fentanyl 50 mcg Intravenous Given by John Wu RN tsites 12:02 PM Time out perfomed tsites 12:03 PM Ultrasound, Sonosite, utilized to obtain vascular access tsites 12:06 PM Micro-Introducer kit utilized for sheath placement tsites 12:05 PM 12:04 5 ml Lidocaine 2% to right groin Subcutaneous Given By Gustavo Moore MD tsites 12:06 PM Access obtained in the right femoral artery by percutaneous puncture. 4 Fr. 10 cm Terumo [place] sheath placed in right femoral artery tsites 12:06 PM 0.035 180cm Bentson wire utilized to assist with catheter placement tsites 12:06 PM 4Fr Omniflush catheter inserted over the wire tsites 12:09 PM 12:08 Fentanyl 50 mcg Intravenous Given by John Wu RN tsites 12:09 PM Catheter removed tsites 12:09 PM Time: 11:54 Is patient comfortable and pain free?: Yes tsites 12:10 PM 4Fr Berenstein catheter inserted over the wire tsites 12:11 PM Isovue 250- 150ml contrast 4 ml given by Gustavo Moore MD right iliac tsites 12:13 PM Wire removed tsites 12:13 PM 0.035 180cm [place]-angled wire utilized to assist with catheter placement tsites 12:19 PM Wire removed tsites 12:19 PM glidewire reinserted tsites 12:21 PM Isovue 250- 150ml contrast 4 ml given by Gustavo Moore MD tsites 12:21 PM Isovue 250- 150ml contrast 3 ml given by Gustavo Moore MD tsites 12:21 PM Catheter removed tsites 12:22 PM omni flush advanced tsites 12:23 PM Tobias Diallo RT (R) Position: Monitor to relieve Sites, Tash RT (R) Time in: 12:23 tsites 12:23 PM Setting up for stepping [email or web address] 12:23 PM Abdominal angiogram with runoff completed: 8 ml/sec for a total of 80 mls [email or web address] 12:25 PM Time: 12:09 Is patient comfortable and pain free?: Yes [email or web address] 12:25 PM 12:25 Fentanyl 25 mcg Intravenous Given by John Wu RN [email or web address] 12:25 PM Time: 11:54LOC: 4 = Oriented but drowsy [email or web address] 12:29 PM Physician reviewing films [email or web address] 12:29 PM Catheter removed [email or web address] 12:29 PM Wire removed [email or web address] 12:31 PM Sign Out completed: Radiation Dose 278.79 mGy Fluoro Time: 9.7 minutes. Isovue 250- 150ml contrast 74 ml given by Gustavo Moore MD. Complications: None. Confirmed administered medications:Yes [email or web address] 12:31 PM Procedure completed at 12:31 [email or web address] 12:31 PM Isovue 250- 150ml,1 bottle(s) used. [email or web address] 12:31 PM Sheath left in place to be pulled on floor/holding areaV+Pad [email or web address] 12:31 PM Post Blood Pressure: 175/106 [email or web address] 12:32 PM Post EKG: Sinus Tachycardia [email or web address] 12:32 PM Information taught: Peripheral angiogram [email or web address] 12:32 PM Education needs: Procedure, Plan of Care, and Disease Process [email or web address] 12:32 PM Learning barriers: None [email or web address] 12:32 PM Education methods: Verbal [email or web address] 12:32 PM Education evaluation: Needs further instruction [email or web address] 12:32 PM Site status No bleeding/hematoma - Rt Groin as reported by Beckie Harris RT (R) at 12:32 [email or web address] 12:32 PM Opsite applied [place] [id number] 12:32 PM Delay to floor: Bed availability [email or web address] 12:33 PM No family available. [email or web address] 12:33 PM Complications: None [email or web address] 12:33 PM Fluoro Time: 9.7 minutes [email or web address] 12:33 PM Isovue 250- 150ml contrast 74 ml given by Gustavo Moore MD [place] [id number] 12:33 PM Radiation Dose 278.79 mGy [place] [address] 12:35 PM Pt taken to Holding room Room to have sheath pulled. [email or web address] 12:36 PM Patient out of room 12:36 [email or web address] 12:40 PM Time: 12:25 Is patient comfortable and pain free?: Yes [email or web address] 12:40 PM Time: 12:25LOC: 4 = Oriented but drowsy [email or web address] 01:03 PM Arterial sheath pulled using manual compression and V+Pad for 12 minutes by Beckie Harris RT (R) [email or web address] 01:03 PM Site status No bleeding/hematoma - Rt Groin as reported by Kary Mcfarland MD, [facility] at 13:03 [email or web address] 01:03 PM Ops[facility] applied [email or web address] 01:03 PM Report given to RN. Pt taken to , Room # 3 13:03 [email or web address] 01:04 PM Patient out of room 13:04 [email or web address] Post Procedure Information Blood Pressure: 175/106 mmHg Rhythm: Sinus Tachycardia Post procedure instructions given Report Given To: Dixon Site Checks Time Location Status Staff Sheath In? Note 1:03:00 PM Rt Groin No bleeding/ No Hematoma Kary Mcfarland MD, [facility] Pulses Time Site Pre Procedure Post Procedure Note Bilateral radial 2+ 12/08/2016 12:40:00 PM Bilateral PT None None 12/08/2016 12:40:00 PM Bilateral DP Doppler Doppler 12/08/2016 1:02:00 PM Updated by Beckie Harris, RT(R) on 12/08/2016 1:04:11 PM electronically signed on 12/08/2016 1:05:44 PM with status of Final
[2016-12-08] MEDS: Nicotine 21 MG PATCH.TD24 TD SCH (14:33)
--- NOTE | 2016-12-08 15:21 | Internal Med Progress Note ---
Date of Encounter: 12/08/16 Time of Encounter: 09:20 - Assessment and plan (1) Peripheral vascular disease with pain at rest Current Visit: Yes Status: Acute Assessment and plan: History of peripheral disease - status post bilateral iliac stents Presented with left lower extremity pain and recent syncopal episode REGGIE consistent with severe disease - with motor and sensory function of the left lower extremity Continue IV heparin, monitor H&H Aortogram with runoff done today - Dr. Moore following patient Echocardiogram - pending Patient needs cardiac clearance prior to further intervention Revised cardiac risk index - 1 risk factor (vascular surgery) - Rate of perioperative cardiac event is 1% Cardiac telemetry, pulse ox, labs in a.m. (2) GI bleed Current Visit: Yes Status: Acute Assessment and plan: Acute GI bleed with melena and bright red blood per rectum - 3 days duration H&H 13.3 and 41.3, hemodynamically stable Fecal Hemoccult positive Gastroenterology consult - EGD and colonoscopy to be scheduled Monitor H&H Qualifiers: GI bleed type/associated pathology: anorectal hemorrhage Qualified Code(s) : K62.5 - Hemorrhage of anus and rectum (3) COPD (chronic obstructive pulmonary disease) Current Visit: Yes Status: Chronic Assessment and plan: Mild acute COPD exacerbation Continue DuoNeb breathing treatment Qualifiers: COPD type: chronic bronchitis Chronic bronchitis type: simple Qualified Code(s): J41.0 - Simple chronic bronchitis (4) Noncompliance with medications Current Visit: Yes Status: Chronic Assessment and plan: Counseled about compliance (5) Tobacco abuse Current Visit: Yes Status: Chronic Assessment and plan: Counseled about cessation, nicotine patch (6) History of blood clots Current Visit: Yes Status: Chronic Assessment and plan: History of DVT probably patient states she has not been taking warfarin for almost 2 months (7) DVT prophylaxis Current Visit: Yes Status: Acute Assessment and plan: Continue IV heparin - Time Spent With Patient 25 - 35 minutes - Subjective Interval history: Examined this morning. Patient is awake and alert. Not in any distress. Denies chest pain or shortness of breath. Admitted for peripheral vascular disease, GI bleed and possible DVT. Patient underwent a aortogram with runoff via right common femoral artery. Dr. Moore following patient. Dr. Méndez consult from GI bleed. H&H stable. Hemodynamically stable. No other acute events or complaints. - Constitutional Vitals: Temp Pulse Resp BP Pulse Ox 98.3 F 104 16 162/99 93 12/08/16 13:30 12/08/16 14:30 12/08/16 13:30 12/08/16 14:30 12/08/16 14:30 General appearance: Present: cachectic, A&O X 3, pleasant, no acute distress, underweight, answers questions appropriately - Head Head exam: Present: atraumatic - Eye Eye exam: Present: EOMI - ENT ENT exam: Present: mucous membranes dry - Neck Neck exam general surgery: Present: supple - Respiratory Respiratory exam: Present: decreased breath sounds (In both bases and left upper ), wheezes (Bilateral). Absent: rales, rhonchi, tachypnea - Cardiovascular Cardiovascular exam: Present: RRR, +S1, +S2 - GI/Abdominal GI/Abdominal exam: Present: soft. Absent: distended, firm, guarding, tenderness - Extremities Exam Extremities exam: Present: radial pulses palpable and symmetrical. Absent: pedal edema Additional comments: Diminished left pedal pulse, left foot is warm to touch, normal capillary refill , left calf tenderness - Neurological Exam Neurological exam: Present: alert, oriented X3, no focal deficits. Absent: facial droop, speech deficit Internal Medicine: Result - Labs CBC & Chem 7: 12/08/16 10:52 12/07/16 20:55 Labs: Urine 12/08/16 Range/Units Unknown Urine Color Yellow (Yellow) Urine Clarity Clear (Clear) Urine pH 6.0 (5.0-8.0) pH Units Ur Specific Mobile 1.015 (1.010-1.025) Urine Protein Negative (Neg-Trace) mg/dL Urine Glucose (UA) Normal (Normal) mg/dL - ABG Interpretation ABG results: PT/INR, D-dimer PT 12.3 Seconds (9.4-12.1) H 12/07/16 20:55 Consult Discharge Plan - Plan Instructions: Angiogram (GEN) Referrals: Edda Peña MD [Primary Care Provider] -
[2016-12-08 16:07] LABS: Hematocrit 37.1 % (35.3-44.9); Hemoglobin 12.4 g/dL (11.5-15.4)
--- NOTE | 2016-12-08 16:16 | Venous Imaging Report ---
LE Venous Duplex Patient Name:Enrico Chow Order Number:[id number] Procedure Date:12/08/2016 Date:1960ge:56 yrs Gender:Female Location:[facility] Room #: 3B21 Shirt Closer:Renetta Espinal RVT, RDCS Referring MD:Omar Patrick MD busboy:Edda Peña MD Reading MD:Gustavo Moore MD Primary Indications:swelling Secondary Indications: Risk Factors Yes/No Anticoagulants No Impressions: Acute deep venous thrombosis is present in the right posterior tibial vein. Normal right lower extremity superficial venous exam. Normal left lower extremity deep and superficial venous exam. Recommendations: Test completed on 12/08/2016 at 5:47:37 am. Critical findings reported to Dr. Patrick in person at 5:47:49 am on 12/08/2016 by Renetta Espinal RVT, RDCS. Findings Venous Duplex Results: Right: Venous imaging of the lower extremity reveals full patency and normal vessel compressibility of the right distal iliac, right common femoral, right superficial femoral, right popliteal, right peroneal, right saphenofemoral junction, right great saphenous and right lesser saphenous. Doppler signals in the evaluated veins were normal. There is an acute occlusive thrombus seen in the right posterior tibial. It demonstrates an incompressible vein. Flow was absent and it did not augment. Left: Venous imaging of the lower extremity reveals full patency and normal vessel compressibility of the left distal iliac, left common femoral, left superficial femoral, left popliteal, left posterior tibial, left peroneal, left saphenofemoral junction, left great saphenous and left lesser saphenous. Doppler signals in the evaluated veins were normal. Lower Extremity Venous Duplex Side Vein Compress Spontaneous Flow Augment Diameter (cm) Depth (cm) Right Distal Iliac Normal Yes Phasic Yes Right Common Femoral Normal Yes Phasic Yes Right Superficial Femoral Normal Yes Phasic Yes Right Popliteal Normal Yes Phasic Yes Right Posterior Tibial None no Absent no Right Peroneal Normal Yes Phasic Yes Right Saphenofemoral Junction Normal Yes Phasic Yes Right Great Saphenous Normal Yes Phasic Yes Right Lesser Saphenous Normal Yes Phasic Yes Left Distal Iliac Normal Yes Phasic Yes Left Common Femoral Normal Yes Phasic Yes Left Superficial Femoral Normal Yes Phasic Yes Left Popliteal Normal Yes Phasic Yes Left Posterior Tibial Normal Yes Phasic Yes Left Peroneal Normal Yes Phasic Yes Left Saphenofemoral Junction Normal Yes Phasic Yes Left Great Saphenous Normal Yes Phasic Yes Left Lesser Saphenous Normal Yes Phasic Yes Updated by Gustavo Moore MD on 12/08/2016 4:12:03 PM electronically signed on 12/08/2016 4:12:21 PM with status of Final
[2016-12-08] MEDS: Ondansetron 4 MG/2 ML VIAL IVP PRN (16:40)
[2016-12-08] MEDS ORDERED: SODIUM CHLORIDE/NAHCO3/KCL/PEG 4,000 ML SOLN.RECON PO ONE (17:00)
--- NOTE | 2016-12-08 17:57 | Arterial Study Report ---
LE Arterial Physiologic Study Patient Name:Enrico Chow Order Number:[id number] Procedure Date:12/08/2016 Date:1960ge:56 yrs Gender:Female Lt BP:156 / mmHg Rt.BP:162 / mmHgHeart Rate: Location:[facility] Room #: 3B21 Label Sewer:Renetta Espinal RVT, NISHANT Referring MD:Omar Patrick MD sheltered workshop worker:Edda Peña MD Reading MD:Gustavo Moore MD Primary Indications:diminished pulse Risk Factors Yes/No Diabetes No Previous Vascular Surgery stents Impressions: The left REGGIE is consistent with severe disease. LABI: 0.18. Recommendations: Further evaluation is recommended. Test completed on 12/08/2016 at 7:31:36 am. Critical findings reported to Dr. Patrick by phone at 7:31:44 am on 12/08/2016 by Renetta Espinal RVT, NISHANT. Findings LE Arterial Physiologic Exam: Segmental Pressures: Left: The left dorsalis pedis pressure is 29 mmHg with an index of 0.18. PVR: Left: The PVR waveforms are severely diminished in the left ankle. Segmental Pressures Side Location Pressure Index Result Left Posterior Tibial 0 Left Dorsalis Pedis 29 0.18 Ankle Brachial Index Right Systolic Diastolic REGGIE Brachial 162 Left Systolic Diastolic REGGIE Brachial 156 0.18 Dorsalis Pedis 29 0.18 Posterior Tibial 0 Updated by Gustavo Moore MD on 12/08/2016 5:52:40 PM with Status of Final electronically signed on 12/08/2016 5:52:58 PM with status of Final
--- NOTE | 2016-12-08 17:57 | Arterial Study Report ---
LE Arterial Duplex Patient Name:Enrico Chow Order Number:[id number] Procedure Date:12/08/2016 Date:1960ge:56 yrs Gender:Female Location:[facility] Room #: 3B21 Foreclosure Home Inspector:Renetta Espinal RVT, NISHANT Referring MD:Omar Patrick MD analytical research program manager:Edda Peña MD Reading MD:Gustavo Moore MD Primary Indications:diminished pulses Risk Factors Yes/No Diabetes No Previous Vascular Surgery stents Impressions: No signifcant stenosis is present in the right lower extremity. The left posterior tibial artery is occluded. Dampened waveforms are consistent with a proximal stenosis or occlusion bilaterally. Recommendations: Further evaluation is recommended. Test completed on 12/08/2016 at 7:45:26 am. Critical findings reported to Dr. Patrick by phone at 7:45:33 am on 12/08/2016 by Renetta Espinal RVT, RDCS. Findings Arterial Duplex Results: Right: The PSV in the right distal external iliac artery is 71 cm/s. The PSV in the right common femoral artery is 71 cm/s. The PSV in the right proximal superficial femoral artery is 29 cm/s. The PSV in the right mid superficial femoral artery is 39 cm/s. The PSV in the right popliteal artery is 14 cm/s. The PSV in the right distal superficial femoral artery is 26 cm/s. The PSV in the right tibioperoneal trunk artery is 11 cm/s. The PSV in the right proximal posterior tibial artery is 12 cm/s. The PSV in the right distal posterior tibial artery is 10 cm/s. The PSV in the right distal anterior tibial artery is 5 cm/s. Left: The PSV in the left distal external iliac artery is 42 cm/s. The PSV in the left common femoral artery is 35 cm/s. The PSV in the left proximal superficial femoral artery is 28 cm/s. The PSV in the left mid superficial femoral artery is 22 cm/s. The PSV in the left popliteal artery is 13 cm/s. The PSV in the left distal superficial femoral artery is 24 cm/s. The PSV in the left tibioperoneal trunk artery is 9 cm/s. There is total occlusion in the left proximal posterior tibial artery. The PSV in the left distal anterior tibial artery is 9 cm/s. LE Duplex Side Vessel PSV EDV Assessment Right Distal External Iliac 71 dampened waveform Right Common Femoral 71 Right Prox Superficial Femoral 29 Right Mid Superficial Femoral 39 Right Popliteal 14 Right Distal Superficial Femoral 26 Right Tibioperoneal Trunk 11 Right Prox Posterior Tibial 12 Right Distal Posterior Tibial 10 Right Distal Anterior Tibial 5 Left Distal External Iliac 42 dampened waveform Left Common Femoral 35 Left Prox Superficial Femoral 28 Left Mid Superficial Femoral 22 Left Popliteal 13 Left Distal Superficial Femoral 24 Left Tibioperoneal Trunk 9 Left Prox Posterior Tibial 0 occluded Left Distal Posterior Tibial 0 occluded Left Distal Peroneal 0 occluded Left Distal Anterior Tibial 9 ERGGIE Updated by Gustavo Moore MD on 12/08/2016 5:51:39 PM electronically signed on 12/08/2016 5:51:53 PM with status of Final
[2016-12-09] MEDS: *HR* HYDROmorphone (PF) 1 MG/ML SYRINGE IVP PRN ×3 (00:58→21:07)
[2016-12-09 03:13] LABS: INR 1.3; Prothrombin Time 13.8 Seconds (9.4-12.1)
[2016-12-09 03:21] LABS: BUN/Creatinine Ratio 15 (6-26); Calcium 8.8 mg/dL (8.6-10.8); Carbon Dioxide 24 mEq/L (19-29); Chloride 104 mEq/L (98-109); Glucose 107 mg/dL (70-99); Magnesium 1.4 mg/dL (1.6-2.6); Osmolality,Calculated 286 (280-300); Potassium 3.7 mEq/L (3.5-4.5); Sodium 138 mEq/L (136-145); eGFR For African Americans > 60 (> 60); eGFR For Non-African Americans > 60 (> 60)
[2016-12-09 03:22] LABS: Blood Urea Nitrogen 11 mg/dL (7-20)
[2016-12-09 03:31] LABS: Basophils % 0.2 %; Eosinophils % 0.1 %; Hematocrit 36.2 % (35.3-44.9); Immature Granulocytes % 0.4 % (0-4); Immature Platelets 4.7 % (1.1-6.1); Lymphocytes # 1.3 K/mcL (0.6-4.6); Lymphocytes % 9.4 %; Mean Corpuscular HGB Conc 33.1 g/dL (31.6-35.5); Mean Corpuscular Hemoglobin 28.6 pg (28.0-33.3); Mean Corpuscular Volume 86.4 fL (83.0-100.0); Mean Platelet Volume 10.8 fL (9.4-12.4); Monocytes % 6.8 %; Neutrophils # 11.8 K/mcL (1.6-8.9); Platelet Count 132 K/mcL (140-400); Red Blood Count 4.19 M/mcL (3.82-4.97); Red Cell Distribution Width 13.2 % (11.5-14.5); Segmented Neutrophils % 83.1 %
[2016-12-09 03:44] LABS: Thyroid Stimulating Hormone 0.639 mcIU/mL (0.350-4.840)
[2016-12-09] MEDS: Ipratropium/Albuterol Neb 3 ML IH SCH ×4 (03:46→22:56)
[2016-12-09 04:13] LABS: Hemoglobin A1C 5.5 %
[2016-12-09] MEDS: *HR* Heparin 5,000 UNIT/ML VIAL IVP PRN ×2 (04:13→09:44)
[2016-12-09] MEDS: Pantoprazole 40 MG VIAL IVP SCH ×2 (05:06→17:00)
[2016-12-09] MEDS: Ondansetron 4 MG/2 ML VIAL IVP PRN (06:52)
[2016-12-09] MEDS: Nicotine 21 MG PATCH.TD24 TD SCH (07:29)
--- NOTE | 2016-12-09 08:00 | Electrocardiograph Report ---
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
[2016-12-09] MEDS: *HR* HYDROcodone/Acet 5/325 mg TABLET PO PRN ×3 (09:35→23:48)
[2016-12-09] MEDS: 0.9 % Sodium Chloride 1,000 ML IVC SCH ×2 (09:36→21:07)
[2016-12-09] MEDS: *HR* Acetylcysteine 20% 600 MG/3 ML ORAL SYRINGE PO SCH (13:11)
--- NOTE | 2016-12-09 15:09 | Electrocardiograph Report ---
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
--- NOTE | 2016-12-09 15:47 | Vascular/Endovas Progress Note ---
Date of Encounter: 12/09/16 Time of Encounter: 15:15 - Assessment and plan (1) Peripheral vascular disease with pain at rest Current Visit: Yes Status: Acute The patient has a history of peripheral vascular disease. Her CT scan reveals bilateral iliac stents. They appear to be malpositioned within the aorta, particularly on the left. She has an absent left femoral pulse. She has monophasic left tibial signals. Her left REGGIE is consistent with severe disease. She has motor and sensory function in the left lower extremity. She has been scheduled for an angiogram. The risks, benefits and alternatives were discussed and all questions were answered. She expressed understanding and wishes to proceed. The patient may benefit from anticoagulation at this time. Given her recent rectal bleeding, she will receive a low dose heparin drip. Continue with serial hemoglobins. The patient has been typed and screened. (2) GI bleed Current Visit: Yes Status: Acute The patient had bright red blood per rectum, a GI consult has been ordered. Qualifiers: GI bleed type/associated pathology: anorectal hemorrhage Qualified Code(s) : K62.5 - Hemorrhage of anus and rectum (3) Acute renal insufficiency Current Visit: Yes Status: Acute The patient has an elevated creatinine. She is currently being hydrated. She will need an angiogram. She will receive mucomyst prior to the procedure. (4) COPD (chronic obstructive pulmonary disease) Current Visit: Yes Status: Chronic Qualifiers: COPD type: chronic bronchitis Chronic bronchitis type: simple Qualified Code(s): J41.0 - Simple chronic bronchitis (5) Tobacco abuse Current Visit: Yes Status: Chronic Vital Signs, Last 4 Hours Temp Pulse Resp BP Pulse Ox 12/09/16 15:41 16 97 12/09/16 15:14 98.3 F 84 15 174/84 97 12/09/16 14:48 81 Results 12/09/16 02:54 12/09/16 02:54 Lab Results, Last 24 hours 12/08/16 12/08/16 12/09/16 15:57 15:57 00:05 WBC Hgb 12.4 Hct 37.1 Plt Count INR APTT 25.8 L 20.1 L Sodium Potassium Chloride Carbon Dioxide BUN Creatinine Glucose Calcium Magnesium TSH 12/09/16 12/09/16 12/09/16 02:54 02:54 02:54 WBC 14.2 H Hgb 12.0 Hct 36.2 Plt Count 132 L INR 1.3 APTT Sodium 138 Potassium 3.7 Chloride 104 Carbon Dioxide 24 BUN 11 D Creatinine 0.75 D Glucose 107 H Calcium 8.8 Magnesium 1.4 L TSH 12/09/16 12/09/16 12/09/16 02:54 02:54 09:07 WBC Hgb Hct Plt Count INR APTT 26.1 39.0 H Sodium Potassium Chloride Carbon Dioxide BUN Creatinine Glucose Calcium Magnesium TSH 0.639 Consult Discharge Plan - Plan Instructions: Angiogram (GEN) Referrals: Mello Coleman MD [Non-Partnered Physician] -
[2016-12-09] MEDS ORDERED: Magnesium Sulfate 2 GM in D5% in Water 100 ML IVPB ONE (16:19)
--- NOTE | 2016-12-09 16:31 | Internal Med Progress Note ---
Date of Encounter: 12/09/16 Time of Encounter: 08:15 - Assessment and plan (1) Peripheral vascular disease with pain at rest Current Visit: Yes Status: Acute Assessment and plan: History of peripheral disease - status post bilateral iliac stents Presented with left lower extremity pain and recent syncopal episode REGGIE consistent with severe disease - with motor and sensory function of the left lower extremity Continue IV heparin, H&H stable Aortogram with runoff done - scheduled for surgery on Wednesday - Dr. Moore following patient Echocardiogram - technically challenging, LVEF 60%, indeterminate diastolic function, normal RV size and function, bioprosthetic valve, no stenosis EKG - sinus rhythm with first-degree AV block, no acute ST-T changes Troponin - 0.01 Revised cardiac risk index - patient has 1 risk factor (vascular surgery) - risk factor for perioperative cardiac event is 1.0-1.3% Patient is a current smoker with mild to moderate COPD - not oxygen dependent ASA Class II Cardiac telemetry, pulse ox, labs in a.m. (2) Acute DVT of right tibial vein Current Visit: Yes Status: Acute Assessment and plan: Acute DVT in the right posterior tibial vein - seen on ultrasound Doppler Continue IV heparin, will need anticoagulation on discharge (3) GI bleed Current Visit: Yes Status: Acute Assessment and plan: Acute GI bleed with melena and bright red blood per rectum - 3 days duration H&H 12.0 and 36.2, hemodynamically stable Fecal Hemoccult positive Gastroenterology consult - EGD and colonoscopy today Qualifiers: GI bleed type/associated pathology: anorectal hemorrhage Qualified Code(s) : K62.5 - Hemorrhage of anus and rectum (4) COPD (chronic obstructive pulmonary disease) Current Visit: Yes Status: Chronic Assessment and plan: Mild acute COPD exacerbation - improving Continue DuoNeb breathing treatment Qualifiers: COPD type: chronic bronchitis Chronic bronchitis type: simple Qualified Code(s): J41.0 - Simple chronic bronchitis (5) Chronic pain Current Visit: Yes Status: Chronic Assessment and plan: History of chronic pain - on oxycodone Follows up with pain management regularly Qualifiers: Chronic pain type: other chronic pain Qualified Code(s): G89.29 - Other chronic pain (6) Noncompliance with medications Current Visit: Yes Status: Chronic Assessment and plan: Counseled about compliance (7) Tobacco abuse Current Visit: Yes Status: Chronic Assessment and plan: Counseled about cessation, nicotine patch (8) History of blood clots Current Visit: Yes Status: Chronic Assessment and plan: History of DVT probably patient states she has not been taking warfarin for almost 2 months (9) H/O mitral valve replacement Current Visit: No Status: Chronic Assessment and plan: History of mitral valve 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 Patient is awake and alert. Not in any distress. Denies chest pain or shortness of breath. Admitted for peripheral vascular disease, GI bleed and possible DVT. Patient underwent a aortogram with runoff via right common femoral artery. Dr. Moore following patient. Scheduled for surgery on Wednesday. Continue low-dose IV heparin. Dr. Méndez consult for GI bleed. EGD and colonoscopy today. H&H stable. Hemodynamically stable. No fever. No other acute events or complaints. - Constitutional Vitals: Temp Pulse Resp BP Pulse Ox 98.3 F 84 16 174/84 97 12/09/16 15:14 12/09/16 15:14 12/09/16 15:41 12/09/16 15:14 12/09/16 15:41 General appearance: Present: cachectic, A&O X 3, pleasant, no acute distress, underweight, answers questions appropriately - Head Head exam: Present: atraumatic - Eye Eye exam: Present: EOMI - ENT ENT exam: Present: mucous membranes dry - Neck Neck exam general surgery: Present: supple - Respiratory Respiratory exam: Present: decreased breath sounds (Slightly decreased in both bases), wheezes (Now improved bilaterally). Absent: rales, rhonchi, tachypnea - Cardiovascular Cardiovascular exam: Present: RRR, +S1, +S2 - GI/Abdominal GI/Abdominal exam: Present: soft. Absent: distended, firm, guarding, tenderness - Extremities Exam Extremities exam: Present: radial pulses palpable and symmetrical. Absent: pedal edema Additional comments: Diminished left pedal pulse, left foot is warm to touch, normal capillary refill , left calf tenderness, patient does have motor and sensory function in left lower extremity. - Neurological Exam Neurological exam: Present: alert, oriented X3, no focal deficits. Absent: facial droop, speech deficit Internal Medicine: Result - Labs CBC & Chem 7: 12/09/16 02:54 12/09/16 02:54 Labs: Short CBC 12/09/16 Range/Units 02:54 WBC 14.2 H (4.3-11.1) K/mcL Hgb 12.0 (11.5-15.4) g/dL Hct 36.2 (35.3-44.9) % Plt Count 132 L (140-400) K/mcL Neutrophils # 11.8 H (1.6-8.9) K/mcL BMP 12/09/16 02:54 Sodium 138 Potassium 3.7 Chloride 104 Carbon Dioxide 24 BUN 11 D Creatinine 0.75 D Glucose 107 H Calcium 8.8 - ABG Interpretation ABG results: PT/INR, D-dimer PT 13.8 Seconds (9.4-12.1) H 12/09/16 02:54 Consult Discharge Plan - Plan Instructions: Angiogram (GEN) Referrals: Mello Coleman MD [Non-Partnered Physician] -
[2016-12-09] MEDS ORDERED: *HR* Midazolam HCl 5 MG/5 ML VIAL IVP ONE (18:34)
[2016-12-09] MEDS ORDERED: *HR* FentaNYL (PF) 100 MCG/2 ML VIAL ONE (18:35)
[2016-12-09] MEDS ORDERED: *HR* Heparin 5,000 UNIT/ML VIAL IVP ONE (22:17)
[2016-12-09] MEDS ORDERED: *HR* Heparin 5,000 UNIT/ML VIAL IVP PRN (22:17)
[2016-12-09] MEDS: Heparin 25,000 UNIT/500 ML D5W 25,000 UNIT/500 ML MLS IVC SCH (23:32)
[2016-12-10] MEDS: Ipratropium/Albuterol Neb 3 ML IH SCH ×4 (03:01→22:58)
[2016-12-10] MEDS: *HR* HYDROmorphone (PF) 1 MG/ML SYRINGE IVP PRN ×3 (03:47→18:39)
[2016-12-10] MEDS: *HR* Metoprolol 5 MG/5 ML VIAL IVP PRN (04:28)
[2016-12-10 06:02] LABS: Basophils % 0.1 %; Eosinophils % 0.1 %; Hemoglobin 11.7 g/dL (11.5-15.4); INR 1.3; Immature Granulocytes % 0.4 % (0-4); Mean Corpuscular HGB Conc 33.4 g/dL (31.6-35.5); Mean Corpuscular Volume 86.8 fL (83.0-100.0); Mean Platelet Volume 10.6 fL (9.4-12.4); Monocytes % 8.3 %; Platelet Count 138 K/mcL (140-400); Prothrombin Time 13.6 Seconds (9.4-12.1); Red Blood Count 4.03 M/mcL (3.82-4.97); Red Cell Distribution Width 13.4 % (11.5-14.5); Segmented Neutrophils % 83.1 %
[2016-12-10 06:03] LABS: Lymphocytes # 1.1 K/mcL (0.6-4.6); Monocytes # 1.2 K/mcL (0.0-1.3); Neutrophils # 11.6 K/mcL (1.6-8.9)
[2016-12-10 06:11] LABS: BUN/Creatinine Ratio 13 (6-26); Blood Urea Nitrogen 10 mg/dL (7-20); Calcium 8.6 mg/dL (8.6-10.8); Carbon Dioxide 26 mEq/L (19-29); Chloride 104 mEq/L (98-109); Glucose 105 mg/dL (70-99); Osmolality,Calculated 285 (280-300); Potassium 3.4 mEq/L (3.5-4.5); Sodium 138 mEq/L (136-145); eGFR For African Americans > 60 (> 60); eGFR For Non-African Americans > 60 (> 60)
[2016-12-10] MEDS: *HR* Heparin 5,000 UNIT/ML VIAL IVP PRN ×3 (06:32→20:18)
[2016-12-10] MEDS: Pantoprazole 40 MG VIAL IVP SCH ×2 (06:33→16:48)
[2016-12-10] MEDS: *HR* Acetylcysteine 20% 600 MG/3 ML ORAL SYRINGE PO SCH ×2 (07:49→08:05)
[2016-12-10] MEDS: Nicotine 21 MG PATCH.TD24 TD SCH (08:04)
[2016-12-10] MEDS: *HR* HYDROcodone/Acet 5/325 mg TABLET PO PRN ×2 (13:21→20:16)
[2016-12-10] MEDS ORDERED: *HR* LORazepam 1 MG TABLET PO PRN (14:27)
--- NOTE | 2016-12-10 16:10 | Internal Med Progress Note ---
Date of Encounter: 12/10/16 Time of Encounter: 09:45 - Assessment and plan (1) Peripheral vascular disease with pain at rest Current Visit: Yes Status: Acute Assessment and plan: PVD - h/o bilateral iliac stents - Presented with left lower extremity pain and recent syncopal episode REGGIE consistent with severe disease - with motor and sensory function of the left lower extremity Continue IV heparin, H&H stable Aortogram with runoff done - scheduled for surgery on Wednesday - Dr. Moore following patient Echocardiogram - technically challenging, LVEF 60%, indeterminate diastolic function, normal RV size and function, bioprosthetic valve, no stenosis EKG - sinus rhythm with first-degree AV block, no acute ST-T changes Troponin - 0.01 Revised cardiac risk index - patient has 1 risk factor (vascular surgery) - risk factor for perioperative cardiac event is 1.0-1.3% Patient is a current smoker with mild to moderate COPD - not oxygen dependent ASA Class II Cardiac telemetry, pulse ox, labs in a.m. (2) Acute DVT of right tibial vein Current Visit: Yes Status: Acute Assessment and plan: Acute DVT in the right posterior tibial vein - seen on ultrasound Doppler Continue IV heparin, will need anticoagulation on discharge (3) GI bleed Current Visit: Yes Status: Acute Assessment and plan: Acute GI bleed with melena and bright red blood per rectum - now improved H&H 11.7 and 35.0, hemodynamically stable Fecal Hemoccult positive Gastroenterology consult - EGD and colonoscopy - diverticulosis in sigmoid colon and scattered inflammation around the sigmoid colon, suspicious for Mendoza's esophagus and small hiatal hernia Recommended ciprofloxacin and Flagyl by GI Qualifiers: GI bleed type/associated pathology: anorectal hemorrhage Qualified Code(s) : K62.5 - Hemorrhage of anus and rectum (4) Anxiety Current Visit: Yes Status: Chronic Assessment and plan: Chronic generalized anxiety - IV Ativan 1 mg every 8 hours as needed (5) COPD (chronic obstructive pulmonary disease) Current Visit: Yes Status: Chronic Assessment and plan: Mild acute COPD exacerbation - improving Continue DuoNeb breathing treatment Qualifiers: COPD type: chronic bronchitis Chronic bronchitis type: simple Qualified Code(s): J41.0 - Simple chronic bronchitis (6) Chronic pain Current Visit: Yes Status: Chronic Assessment and plan: History of chronic pain - on oxycodone Follows up with pain management regularly Qualifiers: Chronic pain type: other chronic pain Qualified Code(s): G89.29 - Other chronic pain (7) Noncompliance with medications Current Visit: Yes Status: Chronic Assessment and plan: Counseled about compliance (8) Tobacco abuse Current Visit: Yes Status: Chronic Assessment and plan: Counseled about cessation, nicotine patch (9) History of blood clots Current Visit: Yes Status: Chronic Assessment and plan: History of DVT probably patient states she has not been taking warfarin for almost 2 months (10) H/O mitral valve replacement Current Visit: No Status: Chronic Assessment and plan: History of mitral valve 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 Patient is awake and alert. Not in any distress. Denies chest pain or shortness of breath. Admitted for peripheral vascular disease, GI bleed and DVT. Patient does seem anxious today. Complains of left lower extremity pain. Patient underwent a aortogram with runoff via right common femoral artery. Dr. Moore following patient. Scheduled for surgery tomorrow. Continue IV heparin. Dr. Méndez consult for GI bleed. EGD and colonoscopy today. Reports reviewed. Hemodynamically stable. No fever. No other acute events or complaints. - Constitutional Vitals: Temp Pulse Resp BP Pulse Ox 98.2 F 93 16 161/96 95 12/10/16 15:21 12/10/16 15:21 12/10/16 15:59 12/10/16 15:21 12/10/16 15:59 General appearance: Present: cachectic, A&O X 3, pleasant, no acute distress, underweight, answers questions appropriately - Head Head exam: Present: atraumatic - Eye Eye exam: Present: EOMI - ENT ENT exam: Present: mucous membranes moist - Neck Neck exam general surgery: Present: supple - Respiratory Respiratory exam: Present: decreased breath sounds (Slightly decreased in both bases), wheezes (Mild, improved significantly) - Cardiovascular Cardiovascular exam: Present: RRR, +S1, +S2 - GI/Abdominal GI/Abdominal exam: Present: soft. Absent: distended, firm, guarding, tenderness - Extremities Exam Extremities exam: Present: radial pulses palpable and symmetrical. Absent: pedal edema Additional comments: Diminished left pedal pulse, left foot is warm to touch, normal capillary refill , left calf tenderness, patient does have motor and sensory function in left lower extremity. - Neurological Exam Neurological exam: Present: alert, oriented X3, no focal deficits. Absent: facial droop, speech deficit Internal Medicine: Result - Labs CBC & Chem 7: 12/10/16 05:12 12/10/16 05:12 Labs: Short CBC 12/10/16 Range/Units 05:12 WBC 14.0 H (4.3-11.1) K/mcL Hgb 11.7 (11.5-15.4) g/dL Hct 35.0 L (35.3-44.9) % Plt Count 138 L (140-400) K/mcL Neutrophils # 11.6 H (1.6-8.9) K/mcL BMP 12/10/16 05:12 Sodium 138 Potassium 3.4 L Chloride 104 Carbon Dioxide 26 BUN 10 Creatinine 0.75 Glucose 105 H Calcium 8.6 - ABG Interpretation ABG results: PT/INR, D-dimer PT 13.6 Seconds (9.4-12.1) H 12/10/16 05:12 Consult Discharge Plan - Plan Instructions: Angiogram (GEN) Referrals: Rayna Jeff, STRATEGIC COMMUNICATIONS SPECIALIST [Advanced Practice Nurse] - 12/18/16 2:00 pm (PLEASE TAKE THE NEW PATIENT PACKET FILLED OUT WITH YOU TO YOUR APPOINTMENT. PLEASE TAKE PICTURE ID, INSURANCE CARDS, AND ALL MEDICATIONS IN THE BOTTLES TO YOUR APPOINTMENT. SHOW UP 15 MINS EARLY. IF YOU HAVE TO CANCEL PLEASE CALL WITH IN 24 HOURS OF YOUR APPOINTMENT.)
[2016-12-10] MEDS ORDERED: Aspirin 81 MG TAB.CHEW PO SCH (16:30)
[2016-12-10] MEDS ORDERED: *HR* LORazepam 2 MG/ML VIAL IVP PRN (17:06)
--- NOTE | 2016-12-10 17:13 | Vascular/[facility] Progress Note ---
Date of Encounter: 12/10/16 Time of Encounter: 16:00 - Assessment and plan (1) Peripheral vascular disease with pain at rest Current Visit: Yes Status: Acute The patient has a history of peripheral vascular disease. Her CT scan revealed bilateral iliac stents. 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 She has been scheduled for an aortobifemoral bypass. The risks, benefits and alternatives were discussed and all questions were answered. She expressed understanding and wishes to proceed. She will continue with intravenous heparin. She has intact motor and sensory function. (2) Acute renal insufficiency Current Visit: Yes Status: Acute Continue with intravenous hydration. (3) COPD (chronic obstructive pulmonary disease) Current Visit: Yes Status: Chronic Qualifiers: COPD type: chronic bronchitis Chronic bronchitis type: simple Qualified Code(s): J41.0 - Simple chronic bronchitis (4) Tobacco abuse Current Visit: Yes Status: Chronic - Subjective Interval history: The patient reports that she is comfortable today. She reports her leg feels cool. She has intact sensation and motor function. She denies chest pain or shortness of breath. Vital Signs, Last 4 Hours Temp Pulse Resp BP Pulse Ox 12/10/16 15:59 16 95 12/10/16 15:21 98.2 F 93 16 161/96 99 12/10/16 15:03 94 - Physical Examination General: Present: Conversant, No Apparent Distress HEENT: Present: Pupils equal Lungs: Present: Normal Breath Sounds, No Wheeze, Rales, Rhonchi Neuro: Present: Alert and responsive, Sensory nerves grossly intact Vascular: Present: Normal capillary refill, Pulse, absent (bilateral femoral through tibials) Abdomen: Present: Soft, Non-tender Skin: Present: No rashes noted on visualized skin Musculoskeletal: Present: Other (compartments soft) Results 12/15/16 05:43 12/15/16 05:43 Lab Results, Last 24 hours 12/09/16 12/10/16 12/10/16 20:37 05:12 05:12 WBC 14.0 H Hgb 11.7 Hct 35.0 L Plt Count 138 L INR APTT 26.9 Sodium 138 Potassium 3.4 L Chloride 104 Carbon Dioxide 26 BUN 10 Creatinine 0.75 Glucose 105 H Calcium 8.6 Magnesium 2.0 12/10/16 12/10/16 12/10/16 05:12 05:12 11:54 WBC Hgb Hct Plt Count INR 1.3 APTT 30.9 35.6 Sodium Potassium Chloride Carbon Dioxide BUN Creatinine Glucose Calcium Magnesium Consult Discharge Plan - Plan Instructions: Angiogram (GEN) Referrals: Rayna Jeff CNP [Advanced Practice Nurse] - 12/18/16 2:00 pm (PLEASE TAKE THE NEW PATIENT PACKET FILLED OUT WITH YOU TO YOUR APPOINTMENT. PLEASE TAKE PICTURE ID, INSURANCE CARDS, AND ALL MEDICATIONS IN THE BOTTLES TO YOUR APPOINTMENT. SHOW UP 15 MINS EARLY. IF YOU HAVE TO CANCEL PLEASE CALL [phone] WITH IN 24 HOURS OF YOUR APPOINTMENT.) Gustavo Moore MD [Partnered Physician] - 01/18/17 1:00 pm
--- NOTE | 2016-12-10 20:51 | Anesthesia Evaluation PreOp ---
Date of Encounter: 12/10/16 Time of Encounter: 20:44 - Past History Planned Operation: Aorto-BiFem Bypass Cardiac History: HTN (maintained on Imdur, Metoprolol, Lisinopril-Hctz), Hyperlipidemia (denies), Arrhythmia (AFib (?-pt denies) previously anticouagulated on Coumadin.), Cardiac Surgery (Mitral valve replacement), Other (PVDz - Hx B-iliac stents. ECHO 12/08/2016 - LVEF 60%, indeterminate LV diastolic fx. SRw/1st degree AVB. Bioprosthetic mitral valve present. NO PulmHtn.) Pulmonary History: Smoker (1ppd x 40yrs), COPD (maintained on Albuterol, Atrovent) COMMUNITY RELATIONS ADVISOR History: Other (Chronic Pain maintained on Gabapentin) Other Medical History: Bleeding (Hx of DVT w/INR = 1.1 on admission[as pt admits to non-compliance w/Warfarin x 2 months]), GERD (GIB on admission (BRBPR x 3 days)) Anesthesia History: Past Anesthesia (Angioplasty/Stent placement. Heart valve replacement. L-lung lobectomy ["they took 80% of it. Pt reports surgery was "cant remember when, but it was probably less than 5 years ago"]. Hysterectomy [ 1979]) Alcohol Use: unknown Drug use: unknown Medications and Allergies Albuterol Neb [AccuNeb] 3 ml IH Q4-6H PRN 12/08/16 [History] Albuterol Sulfate [Proair Respiclick] 180 mcg IH QID PRN 12/08/16 [History] Gabapentin [Neurontin] 300 mg PO TID 12/08/16 [History] Lisinopril-HCTZ 10-12.5 [Prinzide 10-12.5] 1 tab PO DAILY 12/08/16 [History] Methocarbamol [Robaxin] 500 mg PO Q8H 12/08/16 [History] Metoprolol Tartrate [Lopressor] 50 mg PO BID 12/08/16 [History] Oxycodone HCl/Acetaminophen [Percocet 10-325 mg Tablet] 1 each PO Q6HR PRN 12/08 [History] 3 Allergy/AdvReac Type Severity Reaction Status Date / Time codeine Allergy Hives Verified 12/07/16 20:11 Penicillins [PCN] Allergy See Verified 12/07/16 20:11 Comments - Meds/Allergy Pre-op Review Medications Reviewed: Yes Allergies Reviewed: Yes Beta Blockers on Current Med List: Yes (Metoprolol) If Beta Blockers taken, Date/Time (Last Dose taken): 12/10/2016 @ 2016 Anesthesia Results - Labs 12/10/16 05:12 12/10/16 05:12 Laboratory Results Impressions Chest X-Ray 12/07/16 20:41 IMPRESSION: 1. Hyperinflated lungs which probably represent underlying emphysema. 2. Otherwise no acute cardiopulmonary findings. D/ / 12/07/2016 21:19:44 Saw Patel MD / mitchel Interpreting Provider: Saw Patel MD Abdomen/Pelvis CT 12/07/16 21:46 IMPRESSION: 1. The study is limited due to lack of IV contrast. 2. Otherwise no definite acute findings within the abdomen and pelvis. 3. Small 16 mm benign left adrenal adenoma, which no further follow-up or workup is necessary. 4. Bi-iliac arterial stents in place. The patency of which is not evaluated on this noncontrast study. 5. Few scattered punctate calcifications associated with the pancreas, which could represent chronic pancreatitis. 6. A few scattered colonic diverticula without evidence of diverticulitis. D/ / 12/07/2016 22:53:23 Saw Patel MD / mitchel Interpreting Provider: Saw Patel MD - Imaging EKG: image reviewed (70bpm 1st degree AVB) Anesthesia Exam Vital Signs Temp Pulse Resp BP Pulse Ox 12/10/16 19:19 98.5 F 113 26 143/83 94 12/10/16 15:59 16 95 12/10/16 15:21 98.2 F 93 16 161/96 99 12/10/16 15:03 94 12/10/16 12:01 99.1 F 85 17 168/91 91 12/10/16 11:18 79 12/10/16 08:14 86 12/10/16 08:02 99.6 F 94 20 165/114 93 12/10/16 05:30 182/98 12/10/16 03:55 178/91 12/10/16 03:19 98.6 F 81 17 163/82 93 12/09/16 22:53 98.8 F 100 99 163/90 96 Intake and Output 12/10/16 12/10/16 12/10/16 07:59 15:59 23:59 Intake Total 130 / 130 730 / 730 139 / 139 Output Total 500 / 500 675 / 675 350 / 350 Balance -370 / -370 55 / 55 -211 / -211 Intake: IV Fluids 130 / 130 110 / 110 139 / 139 Heparin 25,000 UNIT/500 130 / 130 110 / 110 139 / 139 ML D5W 25,000 unit In 500 ml @ 12 UNIT/KG/HR 11. 952 mls/hr IVC .Q24H ELINOR Rx#:[id number] Oral 620 / 620 0 / 0 Output: Urine 500 / 500 675 / 675 350 / 350 Other: Meal Lunch Dinner Percent of Meal Consumed 30% 15% Weight 49.8 kg 49.8 kg Patient Weight 12/10/16 23:59 Weight 49.8 kg Height: 5'4" Weight: 109# BMI = 19 NPO (# of Hours): MNOc - HEENT Pupil (Motor): Pupils equal, EOMI Mallampati: II Teeth: Missing, Poor dentition Oral Opening: Greater than 3 - COMMUNITY RELATIONS ADVISOR LOC: Oriented COMMUNITY RELATIONS ADVISOR Motor: Normal RUE, Normal LUE, Normal RLE, Normal LLE, Normal Face COMMUNITY RELATIONS ADVISOR Sensory: Normal: RUE, LUE, RLE, LLE, Face - Cardiac Rhythm: Regular Murmur: Systolic - Pulmonary Breath Sounds: bilateral Clear (productive smoker's cough, no audible wheezing) Respiratory Effort: Symmetrical Anesthesia Assess/Plan ASA Score: 4 (Bioprosthetic Heart valve, PVD, GIB this admission, HTN, Chol, Smoker, COPD) Modified Srikanth Scale for Level of Consciousness: Cooperative, oriented, and tranquil Anesthetic Plan: General Autologous Blood: Yes Monitoring Plan: Standard Monitors Recovery Plan: PACU Anes Supervising Prov Stmt: PT seen/evaluated R&B Discussed, questions answered and consent obtained. Karan Desouza MD
[2016-12-11] MEDS: *HR* HYDROmorphone (PF) 1 MG/ML SYRINGE IVP PRN ×2 (01:11→06:07)
[2016-12-11] MEDS: Heparin 25,000 UNIT/500 ML D5W 25,000 UNIT/500 ML MLS IVC SCH (02:20)
[2016-12-11] MEDS: Ipratropium/Albuterol Neb 3 ML IH SCH ×2 (04:12→10:56)
[2016-12-11] MEDS: *HR* HYDROcodone/Acet 5/325 mg TABLET PO PRN (04:25)
[2016-12-11] MEDS: *HR* Metoprolol 5 MG/5 ML VIAL IVP PRN (04:33)
[2016-12-11 05:01] LABS: Basophils % 0.2 %; Eosinophils # 0.1 K/mcL (0.0-0.6); Eosinophils % 0.5 %; Hemoglobin 11.5 g/dL (11.5-15.4); Immature Granulocytes % 0.6 % (0-4); Lymphocytes # 1.5 K/mcL (0.6-4.6); Lymphocytes % 11.8 %; Mean Corpuscular HGB Conc 33.8 g/dL (31.6-35.5); Mean Corpuscular Hemoglobin 29.1 pg (28.0-33.3); Mean Corpuscular Volume 86.1 fL (83.0-100.0); Monocytes # 1.1 K/mcL (0.0-1.3); Monocytes % 8.8 %; Neutrophils # 9.7 K/mcL (1.6-8.9); Platelet Count 149 K/mcL (140-400); Red Blood Count 3.95 M/mcL (3.82-4.97); Red Cell Distribution Width 13.4 % (11.5-14.5); Segmented Neutrophils % 78.1 %
[2016-12-11 05:16] LABS: BUN/Creatinine Ratio 13 (6-26); Blood Urea Nitrogen 11 mg/dL (7-20); Carbon Dioxide 28 mEq/L (19-29); Chloride 101 mEq/L (98-109); Potassium 3.1 mEq/L (3.5-4.5); Sodium 137 mEq/L (136-145)
[2016-12-11 05:17] LABS: Calcium 8.5 mg/dL (8.6-10.8); Glucose 114 mg/dL (70-99); Osmolality,Calculated 284 (280-300); eGFR For African Americans > 60 (> 60); eGFR For Non-African Americans > 60 (> 60)
[2016-12-11] MEDS: Pantoprazole 40 MG VIAL IVP SCH (05:43)
[2016-12-11] MEDS ORDERED: EPHEDrine 50 MG/ML VIAL ONE (06:54)
[2016-12-11] MEDS ORDERED: *HR* Midazolam HCl 5 MG/5 ML VIAL IVP ONE (06:54)
[2016-12-11] MEDS ORDERED: *HR* Propofol 200 MG/20 ML VIAL IVP ONE (06:54)
[2016-12-11] MEDS ORDERED: *HR* FentaNYL (PF) 100 MCG/2 ML VIAL ONE ×3 (06:54→13:03)
[2016-12-11] MEDS ORDERED: *HR* Rocuronium Bromide 50 MG/5 ML VIAL ONE ×2 (06:54→11:09)
[2016-12-11] MEDS ORDERED: Ondansetron 4 MG/2 ML VIAL ONE (06:54)
[2016-12-11] MEDS ORDERED: *HR* Phenylephrine 10 MG/ML VIAL ONE (06:54)
[2016-12-11] MEDS ORDERED: Lidocaine -MPF 4% 5 ML AMPUL ONE (06:54)
[2016-12-11] MEDS ORDERED: Dexamethasone 4 MG/ML VIAL ONE (06:54)
[2016-12-11] MEDS ORDERED: Lidocaine -MPF 2% 2 ML VIAL ONE ×2 (06:54→06:56)
[2016-12-11] MEDS ORDERED: *HR* Succinylcholine 200 MG/10 ML VIAL IVP ONE (06:54)
[2016-12-11] MEDS ORDERED: Heparin 1,000 UNITS/500 mL NS 500 ML ONE ×2 (07:12→07:24)
[2016-12-11] MEDS ORDERED: Vancomycin 1,000 MG VIAL ONE ×3 (07:24→12:22)
[2016-12-11] MEDS: Ringers Solution, Lactated 1,000 ML IVC SCH ×3 (07:45→11:11)
[2016-12-11] MEDS ORDERED: *HR* Promethazine 25 MG/ML VIAL IVP PRN (10:49)
[2016-12-11] MEDS ORDERED: *HR* HYDROmorphone (PF) 1 MG/ML SYRINGE IVP PRN (10:49)
[2016-12-11] MEDS ORDERED: Ondansetron 4 MG/2 ML VIAL IVP ONE (10:49)
[2016-12-11] MEDS ORDERED: *HR* Labetalol 20 MG/4 ML SYRINGE IVP PRN (10:49)
[2016-12-11] MEDS ORDERED: CeFAZolin Pre 2,000 MG/100 ML 2,000 MG/100 ML BAG IVPB ONE ×2 (10:50→11:15)
[2016-12-11] MEDS ORDERED: Vancomycin 750 MG in D5% in Water 250 ML IVPB ONE (10:51)
[2016-12-11] MEDS ORDERED: *HR* Heparin 5,000 UNIT/ML VIAL ONE ×2 (11:09→11:13)
[2016-12-11] MEDS ORDERED: ceFAZolin 2,000 MG in D5% in Water 100 ML IVPB ONE (11:15)
--- NOTE | 2016-12-11 11:20 | Anesthesia Procedures ---
Date of Encounter: 12/11/16 Time of Encounter: 08:30 Procedures: Anesthesia - Arterial Line Consent obtained: verbal consent Time out performed: Yes Sedation: Versed (mg): 5 Sedation: Fentanyl (mcg): 100 (pt under GETA) Supplemental Oxygen via Nasal Cannula (L/min): 10 (ETT) Size (Gauge): 20 Length (inches): 1 3/4 Technique Used: sterile prep, guide wire technique Post-Procedure: line taped into place, dry sterile dressing placed Patient tolerated procedure: well, no complications Complications: none Site: Radial L - Central Line Placement Right IJ Consent obtained: verbal consent Time out performed: Yes Patient placed on monitor/pulse ox: Yes Sedation: Versed (mg): 5 Sedation: Fentanyl (mcg): 100 (patient under GETA) Supplemental Oxygen via Nasal Cannula (L/min): 2 (via ETT) MD prep: mask, gown, gloves Central line prep: Chlorhexidine scrub Ultrasound used for placement: Yes Technique: Seldinger Lumen Inserted: triple Size / Length: 7 Fr / 16 cm Post procedure: sutured in place, good blood return, all ports aspirated, flushed, capped, sterile dressing applied (CXR ordered for PACU) Post procedure x-ray: other (CXR ordered for PACU) Patient tolerated procedure: well Complications: none
[2016-12-11] MEDS ORDERED: Ketamine *HR* 500 MG/10 ML MDV ONE (11:57)
[2016-12-11] MEDS ORDERED: *HR* Midazolam HCl 2 MG/2 ML VIAL ONE (11:59)
[2016-12-11] MEDS ORDERED: Neostigmine Methylsulfate 3 MG/3 ML SYRINGE ONE (12:20)
[2016-12-11] MEDS ORDERED: *HR* HYDROmorphone 2 MG/ML SYRINGE ONE (12:57)
--- NOTE | 2016-12-11 13:39 | Operative Note ---
Date of procedure: 12/11/16 Pre-op diagnosis: Peripheral vascular disease with rest pain Post-op diagnosis: same Procedure: 1. Aortobifemoral artery bypass graft with 14 x 7mm Hemashield Dacron graft. Complications: None Anesthesia: ДМИТРИЙA Surgeon: Gustavo Moore Estimated blood loss (cc): 200 Specimen: None Condition: stable Disposition: PACU Procedure in Detail: Indications: The patient is a 56 year old female admitted with limb threatening ischemia. 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 Surgery was recommended for symptomatic relief and to reduce her risk of limb loss. Procedure: The patient was identified in the preoperative area. The risks, benefits, and alternatives of the procedure were discussed. All questions were answered. The patient was taken to the operating room and placed in supine position on the operating room table. After the induction of general endotracheal anesthesia, she was cleaned and draped in normal sterile fashion. . An oblique incision was made over her right groin sharply. Hemostasis was obtained with electrocautery. Through a process of blunt, sharp, and electrocautery dissection, the right femoral vessels were dissected circumferentially and surrounded with vessel loops. An oblique incision was then made over the left groin sharply. Hemostasis was obtained with electrocautery. Through a process of blunt, sharp, and electrocautery dissection, the left femoral vessels were then dissected circumferentially and surrounded with vessel loops. A midline incision was made sharply. Hemaostasis was obtained via electrocautery. Through a process of blunt, sharp and electrocautery dissection , the subcutaneous tissue, fascia and peritoneum were traversed. The abdomen was explored and no acute pathology was identified. The aorta was palpated in the retroperitoneum. The retroperitoneum was then opened with blunt, sharp and electrocautery dissection. The aorta was dissected along it's anterior, medial and lateral surfaces to below the renal arteries. The dissection was extended down to the aortic bifurcation. A clamp was used to tunnel through the retroperitoneum to each femoral vessel. The patient received 500 units of intravenous heparin and additional heparin throughout the case to maintain anticoagulation. A 14 x 7mm dacron bifurcated graft was cut to appropriate length. The infrarenal aorta was clamped proximally and distally. A longitudinal incision was made into the aorta between the clamps. A large amount of plaque and well organized thrombus was removed from the lumen. The aorta was flushed by releasing the aortic clamp. The aorta was clamped again and infused with heparinized saline. The graft was cut to fit the arteriotomy and sutured in place with a running 3-0 prolene. After completing the anastamosis, the graft limbs were clamped and the aorta was reopened. Thrombin and gelfoam were used to aid in hemostasis. The graft limbs were tunneled to the femoral vessels. The right femoral arteries were occluded and a longitudinal arteriotomy was made in the common femoral artery. The graft limb was cut to fit the arteriotomy and was sutured in place with a running 6-0 Prolene. Prior to completing the anastamosis, the arteries and graft were flushed through the graft anastamosis. Heparin was then infused into the lumen. The anastamosis was completed and flow was restored in the right lower extremity. The left femoral arteries were occluded and a longitudinal arteriotomy was made in the left common femoral artery. The graft limb was cut to fit the arteriotomy and was sutured in place with a running 6-0 Prolene. Prior to completing the anastamosis, the arteries and graft were flushed through the graft anastamosis. Heparin was then infused into the lumen. Flow was then restored to the left lower extremity. Thrombin and gelfoam were used to aid in hemostasis. Polyphasic signals were noted distal to the anastamoses. The wounds were irrigated with antibiotic-containing saline. Platelet rich and platelet poor plasma were infused into the wounds. Meticulous hemostasis was obtained throughout the wounds with electrocautery. The femoral wounds were reapproximated with layers of 2-0 and 3-0 Vicryl. Skin was reapproximated with 3-0 Monocryl. The abdomen and pelvis were irrigated with antibiotic containing saline. Meticulous hemostasis was obtained throughout the retroperitoneum with electrocautery. The retroperitoneum was reapproximated with 2-0 Vicryl. The abdominal contents were returned to their normal anatomic position The nasogastric tube was checked for position. The fascia was reapproximated with looped PDS suture. The subcutaneous tissue was reapproximated with 2-0 Vicryl. Platelet rich and platelet poor plasma were infused into the wound. Skin was reapproximated with 3-0 Monocryl. Sterile dressings were applied. The patient was extubated and taken to recovery room in stable condition.
[2016-12-11] MEDS ORDERED: Albuterol Neb 0.63 MG/3 ML VIAL IH PRN (14:43)
[2016-12-11] MEDS ORDERED: Naloxone 0.4 MG/ML INJ IVP PRN (14:43)
[2016-12-11] MEDS ORDERED: 0.9 % Sodium Chloride 1,000 ML IVC SCH (14:43)
--- NOTE | 2016-12-11 14:50 | Anesthesia Evaluation Post Op ---
Date of Encounter: 12/11/16 Time of Encounter: 14:50 - Vital Signs Vital Signs: Vital Signs/O2 Sat/Glucose, Most Current Temp Pulse Resp BP Pulse Ox 12/11/16 14:33 97.0 F L 67 22 115/67 93 12/11/16 14:23 64 14 116/66 92 12/11/16 14:13 65 16 116/57 91 12/11/16 14:03 97.1 F L 66 14 118/69 92 12/11/16 13:53 64 14 131/70 93 12/11/16 13:43 64 16 123/70 98 12/11/16 13:33 97.2 F L 70 16 130/58 100 - Lungs Lungs: Clear Ascult./Percussion - Airway Airway: Non-obstructed - Cardiovascular Regular Rate - Mental Status Mental Status: Alert & Oriented, Answers Appropriately - Pain Pain Scale: 0 - Nausea Vomiting Nausea Vomiting: Not Present - Hydration Hydration: Ice chips - Discharge PostOp Status: Transfer Patient to floor
[2016-12-11] MEDS: ceFAZolin 2,000 MG in D5% in Water 100 ML IVPB SCH ×2 (15:29→23:16)
--- NOTE | 2016-12-11 16:27 | Internal Med Progress Note ---
Date of Encounter: 12/11/16 Time of Encounter: 16:00 - Assessment and plan (1) Peripheral vascular disease with pain at rest Current Visit: Yes Status: Acute Assessment and plan: PVD - h/o bilateral iliac stents - Presented with left lower extremity pain and recent syncopal episode REGGIE consistent with severe disease - with motor and sensory function of the left lower extremity H&H stable Aortogram with runoff done - scheduled for surgery on Wednesday - Dr. Moore following patient Successful Aortobifemoral artery bypass grafting done today Echocardiogram - technically challenging, LVEF 60%, indeterminate diastolic function, normal RV size and function, bioprosthetic valve, no stenosis EKG - sinus rhythm with first-degree AV block, no acute ST-T changes Troponin - 0.01 Revised cardiac risk index - patient has 1 risk factor (vascular surgery) - risk factor for perioperative cardiac event is 1.0-1.3% Patient is a current smoker with mild to moderate COPD - not oxygen dependent ASA Class II NPO, NG tube, Cardiac telemetry, pulse ox, labs in a.m. (2) Acute DVT of right tibial vein Current Visit: Yes Status: Acute Assessment and plan: Acute DVT in the right posterior tibial vein - seen on ultrasound Doppler Will need anticoagulation (3) GI bleed Current Visit: Yes Status: Acute Assessment and plan: Acute GI bleed with melena and bright red blood per rectum - now improved H&H 11.5 and 34.0, hemodynamically stable Fecal Hemoccult positive Gastroenterology consult - EGD and colonoscopy - diverticulosis in sigmoid colon and scattered inflammation around the sigmoid colon, suspicious for Mendoza's esophagus and small hiatal hernia Recommended ciprofloxacin and Flagyl by GI Qualifiers: GI bleed type/associated pathology: anorectal hemorrhage Qualified Code(s) : K62.5 - Hemorrhage of anus and rectum (4) Anxiety Current Visit: Yes Status: Chronic Assessment and plan: Chronic generalized anxiety - IV Ativan 1 mg every 8 hours as needed (5) COPD (chronic obstructive pulmonary disease) Current Visit: Yes Status: Chronic Assessment and plan: Mild acute COPD exacerbation - improving Continue DuoNeb breathing treatment Qualifiers: COPD type: chronic bronchitis Chronic bronchitis type: simple Qualified Code(s): J41.0 - Simple chronic bronchitis (6) Chronic pain Current Visit: Yes Status: Chronic Assessment and plan: History of chronic pain - now on IV morphine Follows up with pain management regularly Qualifiers: Chronic pain type: other chronic pain Qualified Code(s): G89.29 - Other chronic pain (7) Noncompliance with medications Current Visit: Yes Status: Chronic Assessment and plan: Counseled about compliance (8) Tobacco abuse Current Visit: Yes Status: Chronic Assessment and plan: Counseled about cessation, nicotine patch (9) History of blood clots Current Visit: Yes Status: Chronic Assessment and plan: History of DVT probably patient states she has not been taking warfarin for almost 2 months (10) H/O mitral valve replacement Current Visit: No Status: Chronic Assessment and plan: History of mitral valve replacement in 2009 - for 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 Patient is still sedated. Not in any distress. Admitted for peripheral vascular disease, GI bleed and DVT. Patient underwent a aortogram with runoff via right common femoral artery. Dr. Moore following patient. Patient underwent successful aortobifemoral artery bypass grafting today. Dr. Méndez consult for GI bleed. EGD and colonoscopy done. Reports reviewed. Hemodynamically stable. H&H stable. No fever. No other acute events or complaints. - Constitutional Vitals: Temp Pulse Resp BP Pulse Ox 97.0 F L 67 15 140/74 95 12/11/16 14:43 12/11/16 16:00 12/11/16 16:00 12/11/16 16:00 12/11/16 16:00 General appearance: Present: cachectic, pleasant, no acute distress, underweight Exam: Patient examined after surgery, she is still sedated - ENT ENT exam: Present: mucous membranes dry - Respiratory Respiratory exam: Present: CTAB. Absent: rales, rhonchi, wheezes, tachypnea - Cardiovascular Cardiovascular exam: Present: RRR, +S1, +S2 - GI/Abdominal GI/Abdominal exam: Present: soft. Absent: distended, firm, guarding, tenderness - Extremities Exam Extremities exam: Present: radial pulses palpable and symmetrical. Absent: cyanotic, pedal edema Additional comments: left foot is warm to touch, normal capillary refill - Neurological Exam Neurological exam: Present: no focal deficits. Absent: facial droop Additional comments: Examined after surgery, patient is still sedated Internal Medicine: Result - Labs CBC & Chem 7: 12/11/16 04:50 12/11/16 04:50 Labs: Short CBC 12/11/16 Range/Units 04:50 WBC 12.5 H (4.3-11.1) K/mcL Hgb 11.5 (11.5-15.4) g/dL Hct 34.0 L (35.3-44.9) % Plt Count 149 (140-400) K/mcL Neutrophils # 9.7 H (1.6-8.9) K/mcL BMP 12/11/16 04:50 Sodium 137 Potassium 3.1 L Chloride 101 Carbon Dioxide 28 BUN 11 Creatinine 0.84 Glucose 114 H Calcium 8.5 L - ABG Interpretation ABG results: PT/INR, D-dimer PT 13.6 Seconds (9.4-12.1) H 12/10/16 05:12 - Impressions Impressions Chest X-Ray 12/11/16 13:00 IMPRESSION: Interval placement of endotracheal tube with tip 4.5 cm from the dontae. Interval placement of right IJ central venous catheter with tip in the SVC. Interval placement of enteric tube which is seen to course into the stomach, distal extent not included in the field of view. Otherwise stable exam without evidence for acute cardiopulmonary process to include no pneumothorax. D/ / 12/11/2016 13:57:31 Ba Gamez MD / mitchel Interpreting Provider: Ba Gamez MD - VTE Documentation of Mechanical Device: Intermittent pneumatic compression device Consult Discharge Plan - Plan Instructions: Angiogram (GEN) Referrals: Rayna Jeff CNP [Advanced Practice Nurse] - 12/18/16 2:00 pm (PLEASE TAKE THE NEW PATIENT PACKET FILLED OUT WITH YOU TO YOUR APPOINTMENT. PLEASE TAKE PICTURE ID, INSURANCE CARDS, AND ALL MEDICATIONS IN THE BOTTLES TO YOUR APPOINTMENT. SHOW UP 15 MINS EARLY. IF YOU HAVE TO CANCEL PLEASE CALL [phone] WITH IN 24 HOURS OF YOUR APPOINTMENT.) Gustavo Moore MD [Partnered Physician] - 01/18/17 1:00 pm
[2016-12-11] MEDS: *HR* Morphine 30 MG/ 30 ML PCA IVC PRN (16:54)
[2016-12-11] MEDS ORDERED: 0.9 % Sodium Chloride 1,000 ML IVC ONE (17:27)
[2016-12-11] MEDS: *HR* Metoprolol 5 MG/5 ML VIAL IVP SCH ×2 (18:17→23:18)
[2016-12-11] MEDS: Famotidine 20 MG/2 ML VIAL IVP SCH (18:17)
--- NOTE | 2016-12-11 18:53 | Vascular/[facility] Progress Note ---
Date of Encounter: 12/11/16 Time of Encounter: 18:30 - Assessment and plan (1) Peripheral vascular disease with pain at rest Current Visit: Yes Status: Acute The patient underwent an aortobifemoral bypass today. She is hemodynamically stable. She has clear urine. 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 She is being warmed with a Griselda Hugger. She will continue with intravenous hydration. She will remain NPO with her NGT in place. She will have labs tomorrow. (2) Acute renal insufficiency Current Visit: Yes Status: Acute The patient has an elevated creatinine. She is currently being hydrated. She will need an angiogram. She will receive mucomyst prior to the procedure. (3) COPD (chronic obstructive pulmonary disease) Current Visit: Yes Status: Chronic Qualifiers: COPD type: chronic bronchitis Chronic bronchitis type: simple Qualified Code(s): J41.0 - Simple chronic bronchitis (4) Tobacco abuse Current Visit: Yes Status: Chronic - Subjective Interval history: The patient is resting comfortably. She complains of some intermittent nausea. Vital Signs, Last 4 Hours Temp Pulse Resp BP Pulse Ox 12/11/16 18:37 94.3 F L 67 21 160/82 100 12/11/16 18:00 72 162/79 100 12/11/16 17:32 94.5 F L 75 22 147/77 98 12/11/16 17:00 71 19 149/76 99 12/11/16 16:30 67 17 149/79 96 12/11/16 16:00 67 15 140/74 95 12/11/16 15:45 67 16 131/72 96 12/11/16 15:30 68 132/74 93 12/11/16 15:15 68 16 131/71 94 12/11/16 15:00 67 16 128/72 94 12/11/16 14:55 67 20 128/72 95 - Physical Examination General: Present: Conversant, No Apparent Distress Cardiac: Present: Reg Rate and Rhythm Lungs: Present: Normal Breath Sounds Neuro: Present: No focal deficits noted Vascular: Present: Normal capillary refill, Surgical incisions (bandages dry). Absent: Edema Abdomen: Present: Soft, Other (no distension, incisional tenderness present) - VTE Documentation of Mechanical Device: Intermittent pneumatic compression device Results 12/11/16 04:50 12/11/16 04:50 Lab Results, Last 24 hours 12/10/16 12/11/16 12/11/16 19:19 04:50 04:50 WBC 12.5 H Hgb 11.5 Hct 34.0 L Plt Count 149 APTT 41.5 H Sodium 137 Potassium 3.1 L Chloride 101 Carbon Dioxide 28 BUN 11 Creatinine 0.84 Glucose 114 H Calcium 8.5 L 12/11/16 04:50 WBC Hgb Hct Plt Count APTT 46.7 H Sodium Potassium Chloride Carbon Dioxide BUN Creatinine Glucose Calcium Consult Discharge Plan - Plan Instructions: Angiogram (GEN) Referrals: Rayna Jeff CNP [Advanced Practice Nurse] - 12/18/16 2:00 pm (PLEASE TAKE THE NEW PATIENT PACKET FILLED OUT WITH YOU TO YOUR APPOINTMENT. PLEASE TAKE PICTURE ID, INSURANCE CARDS, AND ALL MEDICATIONS IN THE BOTTLES TO YOUR APPOINTMENT. SHOW UP 15 MINS EARLY. IF YOU HAVE TO CANCEL PLEASE CALL [phone] WITH IN 24 HOURS OF YOUR APPOINTMENT.) Gustavo Moore MD [Partnered Physician] - 01/18/17 1:00 pm
[2016-12-11] MEDS: 0.9 % Sodium Chloride 1,000 ML IVC SCH (19:02)
[2016-12-11] MEDS: *HR* Labetalol 20 MG/4 ML SYRINGE IVP PRN (20:17)
[2016-12-12] MEDS: *HR* Morphine 30 MG/ 30 ML PCA IVC PRN ×2 (00:48→13:13)
[2016-12-12 03:52] LABS: Basophils % 0.1 %; Hematocrit 27.6 % (35.3-44.9); Lymphocytes # 0.6 K/mcL (0.6-4.6); Lymphocytes % 3.6 %; Mean Corpuscular Hemoglobin 28.7 pg (28.0-33.3); Mean Corpuscular Volume 87.1 fL (83.0-100.0); Mean Platelet Volume 9.6 fL (9.4-12.4); Monocytes % 6.2 %; Neutrophils # 14.7 K/mcL (1.6-8.9); Platelet Count 172 K/mcL (140-400); Red Blood Count 3.17 M/mcL (3.82-4.97); Red Cell Distribution Width 13.5 % (11.5-14.5); Segmented Neutrophils % 89.1 %
[2016-12-12 03:53] LABS: Hemoglobin 9.1 g/dL (11.5-15.4)
[2016-12-12 04:07] LABS: BUN/Creatinine Ratio 17 (6-26); Blood Urea Nitrogen 15 mg/dL (7-20); Calcium 7.8 mg/dL (8.6-10.8); Carbon Dioxide 25 mEq/L (19-29); Chloride 106 mEq/L (98-109); Glucose 124 mg/dL (70-99); Magnesium 1.4 mg/dL (1.6-2.6); Osmolality,Calculated 290 (280-300); Potassium 3.8 mEq/L (3.5-4.5); Sodium 139 mEq/L (136-145); eGFR For African Americans > 60 (> 60); eGFR For Non-African Americans > 60 (> 60)
[2016-12-12] MEDS: 0.9 % Sodium Chloride 1,000 ML IVC SCH ×2 (05:00→19:32)
[2016-12-12] MEDS: Famotidine 20 MG/2 ML VIAL IVP SCH ×2 (05:00→17:02)
[2016-12-12] MEDS: *HR* Metoprolol 5 MG/5 ML VIAL IVP SCH ×3 (05:01→17:02)
[2016-12-12] MEDS ORDERED: Magnesium Sulfate 2 GM in D5% in Water 100 ML IVPB ONE (07:12)
[2016-12-12] MEDS: Aspirin 81 MG TAB.CHEW PO SCH (07:16)
[2016-12-12] MEDS: Nicotine 21 MG PATCH.TD24 TD SCH (07:38)
--- NOTE | 2016-12-12 09:45 | Internal Med Progress Note ---
Date of Encounter: 12/12/16 Time of Encounter: 08:50 - Assessment and plan (1) Peripheral vascular disease with pain at rest Current Visit: Yes Status: Acute Assessment and plan: PVD - h/o bilateral iliac stents - s/p successful Aortobifemoral bypass grafting - postop day #1 Continue aspirin, statin, morphine via EDGE BANDING OFF BEARER pump, IV fluids H&H is slightly lower post surgery, monitor H&H closely Dr. Moore following patient Echocardiogram - technically challenging, LVEF 60%, indeterminate diastolic function, normal RV size and function, bioprosthetic valve, no stenosis EKG - sinus rhythm with first-degree AV block, no acute ST-T changes Troponin - 0.01 Revised cardiac risk index - patient has 1 risk factor (vascular surgery) - risk factor for perioperative cardiac event is 1.0-1.3% Patient is a current smoker with mild to moderate COPD - not oxygen dependent ASA Class II NPO, NG tube, Cardiac telemetry, pulse ox, labs in a.m. (2) Acute DVT of right tibial vein Current Visit: Yes Status: Acute Assessment and plan: Acute DVT in the right posterior tibial vein - seen on ultrasound Doppler Will probably need anticoagulation (3) GI bleed Current Visit: Yes Status: Acute Assessment and plan: Acute GI bleed with melena and bright red blood per rectum - now improved H&H 9.1 and 27.6, slightly lower post operatively, monitor H&H closely, hemodynamically stable Fecal Hemoccult positive Gastroenterology consult - EGD and colonoscopy - diverticulosis in sigmoid colon and scattered inflammation around the sigmoid colon, suspicious for Mendoza's esophagus and small hiatal hernia Recommended ciprofloxacin and Flagyl by GI Qualifiers: GI bleed type/associated pathology: anorectal hemorrhage Qualified Code(s) : K62.5 - Hemorrhage of anus and rectum (4) Anxiety Current Visit: Yes Status: Chronic Assessment and plan: Chronic generalized anxiety (5) COPD (chronic obstructive pulmonary disease) Current Visit: Yes Status: Chronic Assessment and plan: Mild acute COPD exacerbation - improving slowly Continue DuoNeb breathing treatment Qualifiers: COPD type: chronic bronchitis Chronic bronchitis type: simple Qualified Code(s): J41.0 - Simple chronic bronchitis (6) Chronic pain Current Visit: Yes Status: Chronic Assessment and plan: History of chronic pain - now on IV morphine Follows up with pain management regularly Qualifiers: Chronic pain type: other chronic pain Qualified Code(s): G89.29 - Other chronic pain (7) Noncompliance with medications Current Visit: Yes Status: Chronic Assessment and plan: Counseled about compliance (8) Tobacco abuse Current Visit: Yes Status: Chronic Assessment and plan: Counseled about cessation, nicotine patch (9) History of blood clots Current Visit: Yes Status: Chronic Assessment and plan: History of DVT patient states she has not been taking warfarin for almost 2 months (10) H/O mitral valve replacement Current Visit: No Status: Chronic Assessment and plan: History of mitral valve 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 Patient is awake and alert. Not in any distress. Patient underwent successful aortobifemoral artery bypass grafting. Doing well after surgery. Postoperative day #1. Patient was slightly hypothermic last night and required a warming blanket. No other acute events or complaints. No fever. Hemodynamically stable. Pain seems to be controlled with EDGE BANDING OFF BEARER pump. H&H is slightly lower post surgery. Continue to monitor closely. Dr. Moore following patient. Continue NG tube and NPO. Dr. Méndez consult for GI bleed. EGD and colonoscopy done. Diverticulosis in sigmoid and moderate inflammation in sigmoid secondary to colitis. Small hiatal hernia present and normal duodenum and there is suspicion for Mendoza's esophagus. - Constitutional Vitals: Temp Pulse Resp BP Pulse Ox 98.5 F 99 16 156/81 95 12/12/16 07:53 12/12/16 07:53 12/12/16 07:53 12/12/16 07:53 12/12/16 07:53 General appearance: Present: cachectic, A&O X 3, pleasant, no acute distress, underweight, answers questions appropriately - Head Head exam: Present: atraumatic - Eye Eye exam: Present: EOMI - ENT ENT exam: Present: mucous membranes dry Additional comments: NG tube in place - Respiratory Respiratory exam: Present: wheezes (Mild bilateral scattered). Absent: rales, rhonchi, tachypnea - Cardiovascular Cardiovascular exam: Present: RRR, +S1, +S2 - GI/Abdominal GI/Abdominal exam: Present: soft. Absent: distended, firm, guarding, tenderness Additional comments: Large midline incision present, surgical dressing intact, no bleeding - Extremities Exam Extremities exam: Present: radial pulses palpable and symmetrical. Absent: cyanotic, pedal edema Additional comments: Left foot is warm and distal pulses palpable, patient does have motor and sensory function - Neurological Exam Neurological exam: Present: alert, oriented X3, no focal deficits. Absent: facial droop, speech deficit Internal Medicine: Result - Labs CBC & Chem 7: 12/12/16 03:41 12/12/16 03:41 Labs: Short CBC 12/12/16 Range/Units 03:41 WBC 16.5 H (4.3-11.1) K/mcL Hgb 9.1 L D (11.5-15.4) g/dL Hct 27.6 L (35.3-44.9) % Plt Count 172 (140-400) K/mcL Neutrophils # 14.7 H (1.6-8.9) K/mcL BMP 12/12/16 03:41 Sodium 139 Potassium 3.8 Chloride 106 Carbon Dioxide 25 BUN 15 Creatinine 0.87 Glucose 124 H Calcium 7.8 L - ABG Interpretation ABG results: PT/INR, D-dimer PT 13.6 Seconds (9.4-12.1) H 12/10/16 05:12 - Impressions Impressions Chest X-Ray 12/11/16 13:00 IMPRESSION: Interval placement of endotracheal tube with tip 4.5 cm from the dontae. Interval placement of right IJ central venous catheter with tip in the SVC. Interval placement of enteric tube which is seen to course into the stomach, distal extent not included in the field of view. Otherwise stable exam without evidence for acute cardiopulmonary process to include no pneumothorax. D/ / 12/11/2016 13:57:31 Ba Gamez MD / mitchel Interpreting Provider: Ba Gamez MD - VTE Documentation of Mechanical Device: Intermittent pneumatic compression device Consult Discharge Plan - Plan Instructions: Angiogram (GEN) Referrals: Rayna Jeff, COMPUTER AIDED DESIGN OPERATOR [Advanced Practice Nurse] - 12/18/16 2:00 pm (PLEASE TAKE THE NEW PATIENT PACKET FILLED OUT WITH YOU TO YOUR APPOINTMENT. PLEASE TAKE PICTURE ID, INSURANCE CARDS, AND ALL MEDICATIONS IN THE BOTTLES TO YOUR APPOINTMENT. SHOW UP 15 MINS EARLY. IF YOU HAVE TO CANCEL PLEASE CALL [phone] WITH IN 24 HOURS OF YOUR APPOINTMENT.) Gustavo Moore MD [Partnered Physician] - 01/18/17 1:00 pm
[2016-12-12] MEDS: Pantoprazole 40 MG VIAL IVP SCH (11:07)
--- NOTE | 2016-12-12 12:49 | Vascular/[facility] Progress Note ---
Date of Encounter: 12/12/16 Time of Encounter: 11:40 - Assessment and plan (1) Peripheral vascular disease with pain at rest Current Visit: Yes Status: Acute The patient is postoperative day #1 after an aotobifemoral bypass. Her legs are well perfused and her symptoms have resolved. Her NGT was removed today. She will remain NPO today. She is hemodynamically stable, her creatinine is normal and she is making good urine. Her IVF will be decreased to maintanence. She will continue with a RENDERING EQUIPMENT TENDER. She will ambulate today. Will recheck labs tomorrow. Will begin subcutaneous heparin today for DVT prophylaxis. (2) COPD (chronic obstructive pulmonary disease) Current Visit: Yes Status: Chronic Qualifiers: COPD type: chronic bronchitis Chronic bronchitis type: simple Qualified Code(s): J41.0 - Simple chronic bronchitis (3) Tobacco abuse Current Visit: Yes Status: Chronic (4) Essential hypertension Current Visit: Yes Status: Acute (5) Postoperative anemia due to acute blood loss Current Visit: Yes Status: Acute The patient has acute expected postoperative blood loss anemia. The patient is hemodynamically stable without evidence of ongoing blood loss. Her hemoglobin decrease is also partially dilutional dut to her intravenous hydration. Will recheck in am. - Subjective Interval history: The patient is alert and comfortable today. She reports that her pain is well controlled with her RENDERING EQUIPMENT TENDER. She states that she would like to eat. She denies chest pain or shortness of breath. Vital Signs, Last 4 Hours Temp Pulse Resp BP Pulse Ox 12/12/16 11:17 101 12/12/16 11:00 98.2 F 104 16 141/72 93 - Physical Examination General: Present: Conversant, No Apparent Distress HEENT: Present: Pupils equal Neck: Absent: JVD Cardiac: Present: Reg Rate and Rhythm Lungs: Present: Normal Breath Sounds Neuro: Present: Alert and responsive, No focal deficits noted, Motor nerves grossly intact, Sensory nerves grossly intact Vascular: Present: Normal capillary refill, Pulse, normal, Surgical incisions ( bandages dry, no hematom). Absent: Cyanosis, Edema Abdomen: Present: Soft, Other (mild distension, few bowel sounds, incisional tenderness) Skin: Present: No rashes noted on visualized skin Musculoskeletal: Present: Other (compartments soft in the bilateral lower extremities) - VTE Documentation of Mechanical Device: Intermittent pneumatic compression device Results 12/12/16 03:41 12/12/16 03:41 Lab Results, Last 24 hours 12/12/16 12/12/16 03:41 03:41 WBC 16.5 H Hgb 9.1 L D Hct 27.6 L Plt Count 172 Sodium 139 Potassium 3.8 Chloride 106 Carbon Dioxide 25 BUN 15 Creatinine 0.87 Glucose 124 H Calcium 7.8 L Magnesium 1.4 L Consult Discharge Plan - Plan Instructions: Angiogram (GEN) Referrals: Rayna Jeff, MALTSTER [Advanced Practice Nurse] - 12/18/16 2:00 pm (PLEASE TAKE THE NEW PATIENT PACKET FILLED OUT WITH YOU TO YOUR APPOINTMENT. PLEASE TAKE PICTURE ID, INSURANCE CARDS, AND ALL MEDICATIONS IN THE BOTTLES TO YOUR APPOINTMENT. SHOW UP 15 MINS EARLY. IF YOU HAVE TO CANCEL PLEASE CALL WITH IN 24 HOURS OF YOUR APPOINTMENT.) Gustavo Moore MD [Partnered Physician] - 01/18/17 1:00 pm
[2016-12-12] MEDS: *HR* LORazepam 2 MG/ML VIAL IVP PRN (15:45)
[2016-12-12] MEDS: *HR* Heparin 5,000 UNIT/ML VIAL SQ SCH (17:03)
[2016-12-12] MEDS ORDERED: Acetaminophen 650 MG RECTAL SUPP RC PRN (17:57)
[2016-12-12] MEDS: *HR* Labetalol 20 MG/4 ML SYRINGE IVP PRN (19:31)
[2016-12-13] MEDS: *HR* Metoprolol 5 MG/5 ML VIAL IVP SCH ×5 (00:04→23:14)
[2016-12-13] MEDS: *HR* LORazepam 2 MG/ML VIAL IVP PRN ×2 (00:06→16:49)
[2016-12-13] MEDS: *HR* Morphine 30 MG/ 30 ML PCA IVC PRN ×3 (00:22→23:33)
[2016-12-13 05:05] LABS: Basophils % 0.1 %; Eosinophils % 0.1 %; Hematocrit 26.9 % (35.3-44.9); Hemoglobin 8.6 g/dL (11.5-15.4); Immature Granulocytes % 0.5 % (0-4); Lymphocytes # 0.9 K/mcL (0.6-4.6); Lymphocytes % 7.6 %; Mean Corpuscular Hemoglobin 28.5 pg (28.0-33.3); Mean Corpuscular Volume 89.1 fL (83.0-100.0); Mean Platelet Volume 9.4 fL (9.4-12.4); Monocytes # 0.9 K/mcL (0.0-1.3); Monocytes % 7.5 %; Neutrophils # 10.4 K/mcL (1.6-8.9); Platelet Count 217 K/mcL (140-400); Red Blood Count 3.02 M/mcL (3.82-4.97); Red Cell Distribution Width 13.9 % (11.5-14.5); Segmented Neutrophils % 84.2 %
[2016-12-13 05:23] LABS: BUN/Creatinine Ratio 21 (6-26); Blood Urea Nitrogen 17 mg/dL (7-20); Calcium 8.2 mg/dL (8.6-10.8); Carbon Dioxide 25 mEq/L (19-29); Chloride 108 mEq/L (98-109); Glucose 84 mg/dL (70-99); Magnesium 1.9 mg/dL (1.6-2.6); Osmolality,Calculated 291 (280-300); Potassium 3.6 mEq/L (3.5-4.5); Sodium 140 mEq/L (136-145); eGFR For African Americans > 60 (> 60); eGFR For Non-African Americans > 60 (> 60)
[2016-12-13] MEDS: *HR* Heparin 5,000 UNIT/ML VIAL SQ SCH ×2 (06:34→16:49)
[2016-12-13] MEDS: Famotidine 20 MG/2 ML VIAL IVP SCH ×2 (06:34→16:49)
[2016-12-13] MEDS: Aspirin 81 MG TAB.CHEW PO SCH (07:14)
[2016-12-13] MEDS: Nicotine 21 MG PATCH.TD24 TD SCH (07:18)
[2016-12-13] MEDS: Pantoprazole 40 MG VIAL IVP SCH (07:19)
[2016-12-13] MEDS: 0.9 % Sodium Chloride 1,000 ML IVC SCH (11:01)
[2016-12-13] MEDS ORDERED: Furosemide 20 MG/2 ML VIAL IVP ONE (11:15)
[2016-12-13] MEDS ORDERED: Calcium Chloride 1,000 MG in 0.9 % Sodium Chloride 100 ML IVPB ONE (11:16)
[2016-12-13] MEDS ORDERED: Bisacodyl 10 MG RECTAL SUPPOSITORY RC ONE (11:19)
--- NOTE | 2016-12-13 12:02 | Vascular/End[facility]as Progress Note ---
Date of Encounter: 12/13/16 Time of Encounter: 11:00 - Assessment and plan (1) Peripheral vascular disease with pain at rest Current Visit: Yes Status: Acute The patient is postoperative day #2 after an aotobifemoral bypass. She is healing well. She has bowel sounds and has passed flatus. She will received lasix 10mg IV today. She will recieve potassium and calcium supplementation. She was have a dulcolax suppository. She will begin sips of clear liquids. She will ambulate today. (2) COPD (chronic obstructive pulmonary disease) Current Visit: Yes Status: Chronic Qualifiers: COPD type: chronic bronchitis Chronic bronchitis type: simple Qualified Code(s): J41.0 - Simple chronic bronchitis (3) Tobacco abuse Current Visit: Yes Status: Chronic (4) Essential hypertension Current Visit: Yes Status: Acute (5) Postoperative anemia due to acute blood loss Current Visit: Yes Status: Acute The patient has acute expected postoperative blood loss anemia. She remains hemodynamically stable without evidence of ongoing blood loss. Recheck hemoglobin tomorrow. - Subjective Interval history: The patient remains comfortable today. She reports that she has passed flatus. She denies any nausea or vomiting. She denies chest pain or shortness of breath. Vital Signs, Last 4 Hours Temp Pulse Resp BP 12/13/16 11:07 95 12/13/16 11:02 98.1 F 94 16 179/92 - Physical Examination General: Present: Conversant, No Apparent Distress Neck: Absent: JVD Cardiac: Present: Reg Rate and Rhythm Lungs: Present: Normal Breath Sounds Neuro: Present: Alert and responsive, No focal deficits noted Vascular: Present: Normal capillary refill, Pulse, normal. Absent: Cyanosis, Edema Abdomen: Present: Soft, Other (incisional tenderness, bowel sounds present) Skin: Present: Other (incisions clean, dry and intact without erythema or drainage). Absent: No rashes noted on visualized skin Musculoskeletal: Present: No Chest Wall Tenderness - VTE Documentation of Mechanical Device: Intermittent pneumatic compression device Results 12/13/16 04:20 12/13/16 04:20 Lab Results, Last 24 hours 12/13/16 12/13/16 04:20 04:20 WBC 12.4 H Hgb 8.6 L Hct 26.9 L Plt Count 217 Sodium 140 Potassium 3.6 Chloride 108 Carbon Dioxide 25 BUN 17 Creatinine 0.80 Glucose 84 Calcium 8.2 L Magnesium 1.9 Consult Discharge Plan - Plan Instructions: Angiogram (GEN) Referrals: Rayna Jeff CNP [Advanced Practice Nurse] - 12/18/16 2:00 pm (PLEASE TAKE THE NEW PATIENT PACKET FILLED OUT WITH YOU TO YOUR APPOINTMENT. PLEASE TAKE PICTURE ID, INSURANCE CARDS, AND ALL MEDICATIONS IN THE BOTTLES TO YOUR APPOINTMENT. SHOW UP 15 MINS EARLY. IF YOU HAVE TO CANCEL PLEASE CALL WITH IN 24 HOURS OF YOUR APPOINTMENT.) Gustavo Moore MD [Partnered Physician] - 01/18/17 1:00 pm
--- NOTE | 2016-12-13 12:54 | Invasive Diagnostic Lab ---
Name: Enrico Chow Date of Study: 12/08/2016 Date: 1960 Ht: 163.0 in Medical Record#: [id number] Age: 56 Wt: 45 lb Gender: Female BSA: 1.45 Order #: [id number] Fluoro: 279 mGy BMI: 16.94 Procedure MD: Gustavo Moore MD Procedures Performed: AORTOGRAPHY, ABDOMINAL S&I AORTOGRAPHY EXT Bilat S&I INTRO CATH, AORTA Indications: Peripheral Vascular Disease with rest pain Impressions: The bilateral renal arteries are patent. The infrarenal aorta is occluded. Occluded pre-existing iliac stents are occluded. No significant bilateral femoral, popliteal or tibial disease identified. No complications. Recommendations: Risk factor reduction. Intravenous anticoagulation. Patient will be scheduled for revascularization. History/ Risk Factors: Hypertension Chronic Lung Disease DVT Peripheral Artery Disease Technique: The patient was identified in the preoperative area and taken to the catheterization lab. The patient was prepped and draped in the normal sterile fashion. After the timeout procedure was performed, local anesthetic was infused over the right groin. Under ultrasound guidance, the right common femoral artery was cannulated with a large bore needle. A wire was advanced though the needle into the right iliac artery. The needle was exchanged for a 4 bulgarian sheat. An occluded stent was encounterd and a glidewire wand guiding catheter were used to advance the wire into the aorta under fluoroscopic view. and an omniflush catheter was advanced into the suprarenal aorta. The wire was removed and an abdominal aortagram was performed. The catheter was then withdrawn to the juxtarenal arota and a bilateral lower extremity angiogram was then performed. The catheter was removed over a wire. The sheath was removed and direct pressure was used to aid in hemostasis. Vessel Findings: * Abdominal Arteries The Left renal is angiographically free of disease. The Right renal is angiographically free of disease. The Inferior mesenteric is angiographically free of disease. There is a lesion present with 100% stenosis, in the Abd. Aorta Infrarenal. No intervention was performed on this Lesion. There is a lesion present with 100% stenosis, in the Abd. Aorta Infrarenal. No intervention was performed on this Lesion. There is a lesion present with 100% stenosis, in the Right Iliac arteries. No intervention was performed on this Lesion. There is a lesion present with 100% stenosis, in the Left Iliac arteries. No intervention was performed on this Lesion. * Lower Extremity Arteries The Right ant.tibial is angiographically free of disease. The Right Femoral is angiographically free of disease. The Right superficial femoral is angiographically free of disease. The Right popliteal is angiographically free of disease. The Right tibioperoneal trunk is angiographically free of disease. The Right peroneal is angiographically free of disease. The Right post. tibial is angiographically free of disease. The Left Femoral is angiographically free of disease. The Left superficial femoral is angiographically free of disease. The Left popliteal is angiographically free of disease. The Left tibioperoneal trunk is angiographically free of disease. The Left ant. tibial is angiographically free of disease. The Left peroneal is angiographically free of disease. The Left post. tibial is angiographically free of disease. Lesions: Abd. Aorta Infrarenal Stenosis: 100% Abd. Aorta Infrarenal Stenosis: 100% Right Common Iliac Stenosis: 100% Left Common Iliac Stenosis: 100% Total Contrast: Isovue 250- 150ml 74mls Updated by Gustavo Moore MD on 12/13/2016 12:42:41 PM electronically signed on 12/13/2016 12:50:21 PM with status of Final
--- NOTE | 2016-12-13 13:26 | Internal Med Progress Note ---
Date of Encounter: 12/13/16 Time of Encounter: 09:20 - Assessment and plan (1) Peripheral vascular disease with pain at rest Current Visit: Yes Status: Acute Assessment and plan: PVD - h/o bilateral iliac stents - s/p successful Aortobifemoral bypass grafting - postop day #2 - healing well Continue ASA, Statin, morphine via SENIOR [employer]MICAL PROCESS ENGINEER pump, IV fluids H&H is slightly lower post surgery, monitor H&H closely Dr. Moore following patient Echocardiogram - technically challenging, LVEF 60%, indeterminate diastolic function, normal RV size and function, bioprosthetic valve, no stenosis EKG - sinus rhythm with first-degree AV block, no acute ST-T changes Troponin - 0.01 Revised cardiac risk index - patient has 1 risk factor (vascular surgery) - risk factor for perioperative cardiac event is 1.0-1.3% Patient is a current smoker with mild to moderate COPD - not oxygen dependent, ASA class II Cardiac telemetry, pulse ox, labs in a.m. (2) Acute DVT of right tibial vein Current Visit: Yes Status: Acute Assessment and plan: Acute DVT in the right posterior tibial vein - seen on ultrasound Doppler Repeat ultrasound Doppler today Restart IV heparin as per protocol if positive for DVT again (3) GI bleed Current Visit: Yes Status: Acute Assessment and plan: Acute GI bleed with melena and bright red blood per rectum - now improved Continue pantoprazole H&H 8.6 and 26.9, slightly lower post operatively, monitor H&H closely, hemodynamically stable Fecal Hemoccult positive Gastroenterology consult - EGD and colonoscopy - diverticulosis in sigmoid colon and scattered inflammation around the sigmoid colon, suspicious for Mendoza's esophagus and small hiatal hernia Recommended ciprofloxacin and Flagyl by GI Qualifiers: GI bleed type/associated pathology: anorectal hemorrhage Qualified Code(s) : K62.5 - Hemorrhage of anus and rectum (4) Anxiety Current Visit: Yes Status: Chronic Assessment and plan: Chronic generalized anxiety - continue IV Ativan as needed (5) COPD (chronic obstructive pulmonary disease) Current Visit: Yes Status: Chronic Assessment and plan: Mild acute COPD exacerbation - improving slowly Continue DuoNeb breathing treatment Qualifiers: COPD type: chronic bronchitis Chronic bronchitis type: simple Qualified Code(s): J41.0 - Simple chronic bronchitis (6) Chronic pain Current Visit: Yes Status: Chronic Assessment and plan: History of chronic pain - now on IV morphine Follows up with pain management regularly Qualifiers: Chronic pain type: other chronic pain Qualified Code(s): G89.29 - Other chronic pain (7) Noncompliance with medications Current Visit: Yes Status: Chronic Assessment and plan: Counseled about compliance (8) Tobacco abuse Current Visit: Yes Status: Chronic Assessment and plan: Counseled about cessation, nicotine patch (9) History of blood clots Current Visit: Yes Status: Chronic Assessment and plan: History of DVT patient states she has not been taking warfarin for almost 2 months (10) H/O mitral valve replacement Current Visit: No Status: Chronic Assessment and plan: History of mitral valve 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 Patient is awake and alert. Not in any distress. Resting comfortably. Patient underwent successful aortobifemoral artery bypass grafting. Doing well after surgery. Postoperative day #2. Patient had a fever last night. No other acute events or complaints. No fever. Hemodynamically stable. Pain seems to be controlled with SENIOR CHEMICAL PROCESS ENGINEER pump. H&H is stable. Continue to monitor closely. Dr. Moore following patient. Clear liquids today. Dr. Méndez consult for GI bleed. EGD and colonoscopy done. Diverticulosis in sigmoid and moderate inflammation in sigmoid secondary to colitis. Small hiatal hernia present and normal duodenum and there is suspicion for Mendoza's esophagus. - Constitutional Vitals: Temp Pulse Resp BP Pulse Ox 98.1 F 95 16 179/92 99 12/13/16 11:02 12/13/16 11:07 12/13/16 11:02 12/13/16 11:02 12/13/16 07:20 General appearance: Present: cachectic, A&O X 3, pleasant, no acute distress, underweight, answers questions appropriately - Head Head exam: Present: atraumatic - Eye Eye exam: Present: EOMI - ENT ENT exam: Present: mucous membranes dry - Respiratory Respiratory exam: Present: wheezes (Mild bilateral). Absent: rales, rhonchi, tachypnea - Cardiovascular Cardiovascular exam: Present: RRR, +S1, +S2 - GI/Abdominal GI/Abdominal exam: Present: soft. Absent: distended, firm, guarding, tenderness Additional comments: Large midline incision present, surgical dressing intact, no bleeding - Extremities Exam Extremities exam: Present: radial pulses palpable and symmetrical. Absent: cyanotic, pedal edema Additional comments: Left foot is warm and distal pulses palpable, patient does have motor and sensory function - Neurological Exam Neurological exam: Present: alert, oriented X3, no focal deficits Internal Medicine: Result - Labs CBC & Chem 7: 12/13/16 04:20 12/13/16 04:20 Labs: Short CBC 12/13/16 Range/Units 04:20 WBC 12.4 H (4.3-11.1) K/mcL Hgb 8.6 L (11.5-15.4) g/dL Hct 26.9 L (35.3-44.9) % Plt Count 217 (140-400) K/mcL Neutrophils # 10.4 H (1.6-8.9) K/mcL BMP 12/13/16 04:20 Sodium 140 Potassium 3.6 Chloride 108 Carbon Dioxide 25 BUN 17 Creatinine 0.80 Glucose 84 Calcium 8.2 L - ABG Interpretation ABG results: PT/INR, D-dimer PT 13.6 Seconds (9.4-12.1) H 12/10/16 05:12 - VTE Documentation of Mechanical Device: Intermittent pneumatic compression device Consult Discharge Plan - Plan Instructions: Angiogram (GEN) Referrals: Rayna Jeff CNP [Advanced Practice Nurse] - 12/18/16 2:00 pm (PLEASE TAKE THE NEW PATIENT PACKET FILLED OUT WITH YOU TO YOUR APPOINTMENT. PLEASE TAKE PICTURE ID, INSURANCE CARDS, AND ALL MEDICATIONS IN THE BOTTLES TO YOUR APPOINTMENT. SHOW UP 15 MINS EARLY. IF YOU HAVE TO CANCEL PLEASE CALL WITH IN 24 HOURS OF YOUR APPOINTMENT.) Gustavo Moore MD [Partnered Physician] - 01/18/17 1:00 pm
[2016-12-13] MEDS: Ipratropium/Albuterol Neb 3 ML IH SCH ×2 (15:58→21:54)
[2016-12-14] MEDS: *HR* LORazepam 2 MG/ML VIAL IVP PRN (01:19)
[2016-12-14] MEDS: Ipratropium/Albuterol Neb 3 ML IH SCH ×4 (03:52→22:25)
[2016-12-14 04:37] LABS: Basophils % 0.3 %; Eosinophils # 0.1 K/mcL (0.0-0.6); Eosinophils % 0.8 %; Hematocrit 25.6 % (35.3-44.9); Hemoglobin 8.4 g/dL (11.5-15.4); Immature Granulocytes % 0.6 % (0-4); Lymphocytes % 10.9 %; Mean Corpuscular HGB Conc 32.8 g/dL (31.6-35.5); Mean Corpuscular Volume 88.3 fL (83.0-100.0); Mean Platelet Volume 9.4 fL (9.4-12.4); Monocytes # 0.8 K/mcL (0.0-1.3); Monocytes % 8.3 %; Neutrophils # 7.5 K/mcL (1.6-8.9); Platelet Count 232 K/mcL (140-400); Red Cell Distribution Width 13.5 % (11.5-14.5); Segmented Neutrophils % 79.1 %
[2016-12-14 04:46] LABS: BUN/Creatinine Ratio 18 (6-26); Blood Urea Nitrogen 14 mg/dL (7-20); Calcium 8.6 mg/dL (8.6-10.8); Carbon Dioxide 29 mEq/L (19-29); Chloride 103 mEq/L (98-109); Glucose 85 mg/dL (70-99); Osmolality,Calculated 290 (280-300); Potassium 3.4 mEq/L (3.5-4.5); Sodium 140 mEq/L (136-145); eGFR For African Americans > 60 (> 60); eGFR For Non-African Americans > 60 (> 60)
[2016-12-14] MEDS: Famotidine 20 MG/2 ML VIAL IVP SCH (06:12)
[2016-12-14] MEDS: *HR* Heparin 5,000 UNIT/ML VIAL SQ SCH ×2 (06:12→19:14)
[2016-12-14] MEDS: *HR* Metoprolol 5 MG/5 ML VIAL IVP SCH (06:12)
--- NOTE | 2016-12-14 07:02 | Venous Imaging Report ---
LE Venous Duplex Patient Name:Enrico Chow Order Number:[id number] Procedure Date:12/13/2016 Date:1960ge:56 yrs Gender:Female Location:[facility] Room #: 2NO3 Actuarial Assistant:Denisha Camara Referring MD:Ish Espinoza MD fifth hand:Edda Peña MD Reading MD:Gustavo Moore MD Primary Indications:recent acute right PTV DVT. Secondary Indications: Risk Factors Yes/No Hx of DVT Yes Anticoagulants Yes Recent Surgery Yes Impressions: Normal bilateral lower extremity deep and superficial venous exam. Recommendations: After imaging the patient returned to their room. Test completed on 12/13/2016 at 3:56:00 pm. Findings Venous Duplex Results: Right: Venous imaging of the lower extremity reveals full patency and normal vessel compressibility of the right distal iliac, right common femoral, right superficial femoral, right popliteal, right posterior tibial, right peroneal, right great saphenous and right lesser saphenous. Doppler signals in the evaluated veins were normal. Left: Venous imaging of the lower extremity reveals full patency and normal vessel compressibility of the left distal iliac, left common femoral, left superficial femoral, left popliteal, left posterior tibial, left peroneal, left great saphenous and left lesser saphenous. Doppler signals in the evaluated veins were normal. Lower Extremity Venous Duplex Side Vein Compress Spontaneous Flow Augment Diameter (cm) Depth (cm) Right Distal Iliac Normal Yes Phasic Yes Right Common Femoral Normal Yes Phasic Yes Right Superficial Femoral Normal Yes Phasic Yes Right Popliteal Normal Yes Phasic Yes Right Posterior Tibial Normal Yes Phasic Yes Right Peroneal Normal Yes Phasic Yes Right Great Saphenous Normal Yes Phasic Yes Right Lesser Saphenous Normal Yes Phasic Yes Left Distal Iliac Normal Yes Phasic Yes Left Common Femoral Normal Yes Phasic Yes Left Superficial Femoral Normal Yes Phasic Yes Left Popliteal Normal Yes Phasic Yes Left Posterior Tibial Normal Yes Phasic Yes Left Peroneal Normal Yes Phasic Yes Left Great Saphenous Normal Yes Phasic Yes Left Lesser Saphenous Normal Yes Phasic Yes Updated by Gustavo Moore MD on 12/14/2016 6:56:37 AM electronically signed on 12/14/2016 6:57:09 AM with status of Final
[2016-12-14] MEDS: Pantoprazole 40 MG VIAL IVP SCH (08:02)
[2016-12-14] MEDS: Aspirin 81 MG TAB.CHEW PO SCH (08:02)
[2016-12-14] MEDS: Nicotine 21 MG PATCH.TD24 TD SCH (08:02)
[2016-12-14] MEDS: Potassium Chloride Elixir 20 MEQ/15 ML UDC PO SCH (08:04)
[2016-12-14] MEDS ORDERED: *HR* Morphine 2 MG/ML SYRINGE IVP PRN (08:30)
[2016-12-14] MEDS: *HR* OxyCODONE/APAP 5/325 TABLET PO PRN ×3 (09:24→18:34)
--- NOTE | 2016-12-14 12:54 | Internal Med Progress Note ---
Date of Encounter: 12/14/16 Time of Encounter: 09:05 - Assessment and plan (1) Peripheral vascular disease with pain at rest Current Visit: Yes Status: Acute Assessment and plan: PVD - h/o bilateral iliac stents - s/p successful Aortobifemoral bypass grafting - postop day #3 - healing well Continue ASA, Statin, IV morphine H&H stable continue to monitor closely Dr. Moore following patient Echocardiogram - technically challenging, LVEF 60%, indeterminate diastolic function, normal RV size and function, bioprosthetic valve, no stenosis EKG - sinus rhythm with first-degree AV block, no acute ST-T changes Troponin - 0.01 Revised cardiac risk index - patient has 1 risk factor (vascular surgery) - risk factor for perioperative cardiac event is 1.0-1.3% Patient is a current smoker with mild to moderate COPD - not oxygen dependent, ASA class II Cardiac telemetry, pulse ox, labs in a.m. Anticipate discharge soon (2) GI bleed Current Visit: Yes Status: Acute Assessment and plan: Acute GI bleed with melena and bright red blood per rectum - now improved Continue pantoprazole H&H 8.4 and 25.6, slightly lower post operatively, monitor H&H closely, hemodynamically stable Fecal Hemoccult positive Gastroenterology consult - EGD and colonoscopy - diverticulosis in sigmoid colon and scattered inflammation around the sigmoid colon, suspicious for Mendoza's esophagus and small hiatal hernia, recommended ciprofloxacin and Flagyl by GI Qualifiers: GI bleed type/associated pathology: anorectal hemorrhage Qualified Code(s) : K62.5 - Hemorrhage of anus and rectum (3) Acute DVT of right tibial vein Current Visit: Yes Status: Acute Assessment and plan: Repeat ultrasound Doppler is NEGATIVE for DVT bilaterally Initial ultrasound Doppler revealed acute DVT in right posterior tibial vein No need for anticoagulation (4) Anxiety Current Visit: Yes Status: Chronic Assessment and plan: Chronic generalized anxiety - continue IV Ativan as needed (5) COPD (chronic obstructive pulmonary disease) Current Visit: Yes Status: Chronic Assessment and plan: Mild acute COPD exacerbation - slowly improving Continue DuoNeb breathing treatment Qualifiers: COPD type: chronic bronchitis Chronic bronchitis type: simple Qualified Code(s): J41.0 - Simple chronic bronchitis (6) Chronic pain Current Visit: Yes Status: Chronic Assessment and plan: History of chronic pain - now on IV morphine Follows up with pain management regularly Qualifiers: Chronic pain type: other chronic pain Qualified Code(s): G89.29 - Other chronic pain (7) Noncompliance with medications Current Visit: Yes Status: Chronic Assessment and plan: Counseled about compliance (8) Tobacco abuse Current Visit: Yes Status: Chronic Assessment and plan: Counseled about cessation, nicotine patch (9) History of blood clots Current Visit: Yes Status: Chronic Assessment and plan: History of DVT patient states she has not been taking warfarin for almost 2 months (10) H/O mitral valve replacement Current Visit: No Status: Chronic Assessment and plan: History of mitral valve 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 Patient is awake and alert. Not in any distress. Resting comfortably. Patient underwent successful aortobifemoral artery bypass grafting. Doing well after surgery. Postoperative day #3. No fever in over 24 hours. No other acute events or complaints. Hemodynamically stable. Pain is well controlled with IV morphine. H&H is stable. Continue to monitor closely. Dr. Moore following patient. Tolerating clear liquids. Anticipate discharge soon. Dr. Méndez consult for GI bleed. EGD and colonoscopy done. Diverticulosis in sigmoid and moderate inflammation in sigmoid secondary to colitis. Small hiatal hernia present and normal duodenum and there is suspicion for Mendoza's esophagus. - Constitutional Vitals: Temp Pulse Resp BP Pulse Ox 98.1 F 100 18 156/82 96 12/14/16 11:54 12/14/16 11:54 12/14/16 11:54 12/14/16 11:54 12/14/16 11:54 General appearance: Present: cachectic, A&O X 3, pleasant, no acute distress, underweight, answers questions appropriately - Head Head exam: Present: atraumatic - Eye Eye exam: Present: EOMI - ENT ENT exam: Present: mucous membranes moist - Respiratory Respiratory exam: Present: wheezes (Bilateral scattered). Absent: accessory muscle use, rales, rhonchi, tachypnea - Cardiovascular Cardiovascular exam: Present: RRR, +S1, +S2 - GI/Abdominal GI/Abdominal exam: Present: soft. Absent: distended, firm, guarding, tenderness Additional comments: Large midline incision present - healing well, no bleeding or discharge - Extremities Exam Extremities exam: Present: radial pulses palpable and symmetrical. Absent: cyanotic, pedal edema Additional comments: Left foot is warm and distal pulses now palpable, patient does have motor and sensory function - Neurological Exam Neurological exam: Present: alert, oriented X3, no focal deficits. Absent: facial droop, speech deficit Internal Medicine: Result - Labs CBC & Chem 7: 12/14/16 04:05 12/14/16 04:05 Labs: Short CBC 12/14/16 Range/Units 04:05 WBC 9.4 (4.3-11.1) K/mcL Hgb 8.4 L (11.5-15.4) g/dL Hct 25.6 L (35.3-44.9) % Plt Count 232 (140-400) K/mcL Neutrophils # 7.5 (1.6-8.9) K/mcL BMP 12/14/16 04:05 Sodium 140 Potassium 3.4 L Chloride 103 Carbon Dioxide 29 BUN 14 Creatinine 0.77 Glucose 85 Calcium 8.6 - ABG Interpretation ABG results: PT/INR, D-dimer PT 13.6 Seconds (9.4-12.1) H 12/10/16 05:12 - VTE Documentation of Mechanical Device: Intermittent pneumatic compression device Consult Discharge Plan - Plan Instructions: Angiogram (GEN) Referrals: Rayna Jeff GEOPOLITICS TEACHER [Advanced Practice Nurse] - 12/18/16 2:00 pm (PLEASE TAKE THE NEW PATIENT PACKET FILLED OUT WITH YOU TO YOUR APPOINTMENT. PLEASE TAKE PICTURE ID, INSURANCE CARDS, AND ALL MEDICATIONS IN THE BOTTLES TO YOUR APPOINTMENT. SHOW UP 15 MINS EARLY. IF YOU HAVE TO CANCEL PLEASE CALL [phone] WITH IN 24 HOURS OF YOUR APPOINTMENT.) Gustavo Moore MD [Partnered Physician] - 01/18/17 1:00 pm
[2016-12-14] MEDS: *HR* LORazepam 0.5 MG TABLET PO PRN (18:35)
[2016-12-14] MEDS: *HR* HYDROcodone/Acet 5/325 mg TABLET PO PRN (20:40)
--- NOTE | 2016-12-14 23:30 | Vascular/[facility] Progress Note ---
Date of Encounter: 12/14/16 Time of Encounter: 07:45 - Assessment and plan (1) Peripheral vascular disease with pain at rest Current Visit: Yes Status: Acute The patient is postoperative day #3 after an aortobifemoral bypass. She is tolerating sips of clears. Her diet will be advanced. She will be seen by physical therapy. Likely discharge tomorrow. (2) Tobacco abuse Current Visit: Yes Status: Chronic (3) Essential hypertension Current Visit: Yes Status: Acute (4) Postoperative anemia due to acute blood loss Current Visit: Yes Status: Acute The patient has acute expected postoperative blood loss anemia. She has no evidence of ongoing blood loss. She remains hemodynamically stable. (5) COPD (chronic obstructive pulmonary disease) Current Visit: Yes Status: Chronic Qualifiers: COPD type: chronic bronchitis Chronic bronchitis type: simple Qualified Code(s): J41.0 - Simple chronic bronchitis - Subjective Interval history: The patient was able to tolerate clear liquids yesterday. She reports that she is feeling well today. She is eager to go home. She denies chest pain or shortness of breath. Vital Signs, Last 4 Hours Resp Pulse Ox 12/14/16 22:26 16 96 - Physical Examination General: Present: Conversant HEENT: Present: Pupils equal Neck: Absent: JVD Cardiac: Present: Reg Rate and Rhythm Lungs: Present: Normal Breath Sounds Neuro: Present: Alert and responsive, No focal deficits noted Vascular: Present: Normal capillary refill, Pulse, normal. Absent: Edema Abdomen: Present: Soft, Other (incisions healing well, nondistended, bowel sounds present) - VTE Documentation of Mechanical Device: Intermittent pneumatic compression device Results 12/14/16 04:05 12/14/16 04:05 Lab Results, Last 24 hours 12/14/16 12/14/16 04:05 04:05 WBC 9.4 Hgb 8.4 L Hct 25.6 L Plt Count 232 Sodium 140 Potassium 3.4 L Chloride 103 Carbon Dioxide 29 BUN 14 Creatinine 0.77 Glucose 85 Calcium 8.6 Consult Discharge Plan - Plan Instructions: Angiogram (GEN) Referrals: Rayna Jeff, NEWS PRODUCTION SUPERVISOR [Advanced Practice Nurse] - 12/18/16 2:00 pm (PLEASE TAKE THE NEW PATIENT PACKET FILLED OUT WITH YOU TO YOUR APPOINTMENT. PLEASE TAKE PICTURE ID, INSURANCE CARDS, AND ALL MEDICATIONS IN THE BOTTLES TO YOUR APPOINTMENT. SHOW UP 15 MINS EARLY. IF YOU HAVE TO CANCEL PLEASE CALL WITH IN 24 HOURS OF YOUR APPOINTMENT.) Gustavo Moore MD [Partnered Physician] - 01/18/17 1:00 pm
[2016-12-15] MEDS: *HR* OxyCODONE/APAP 5/325 TABLET PO PRN ×3 (00:15→08:51)
[2016-12-15] MEDS: *HR* LORazepam 0.5 MG TABLET PO PRN ×2 (00:15→07:47)
[2016-12-15] MEDS: *HR* HYDROcodone/Acet 5/325 mg TABLET PO PRN (03:16)
[2016-12-15] MEDS: Ipratropium/Albuterol Neb 3 ML IH SCH ×2 (04:16→10:56)
[2016-12-15] MEDS ORDERED: Ondansetron ODT 4 MG TAB.RAPDIS SL PRN (04:37)
[2016-12-15] MEDS: *HR* Heparin 5,000 UNIT/ML VIAL SQ SCH (04:47)
[2016-12-15 06:06] LABS: Basophils % 0.3 %; Eosinophils # 0.2 K/mcL (0.0-0.6); Eosinophils % 1.8 %; Hematocrit 26.1 % (35.3-44.9); Hemoglobin 8.4 g/dL (11.5-15.4); Immature Granulocytes % 1.1 % (0-4); Lymphocytes # 1.2 K/mcL (0.6-4.6); Lymphocytes % 12.6 %; Mean Corpuscular HGB Conc 32.2 g/dL (31.6-35.5); Mean Corpuscular Hemoglobin 28.3 pg (28.0-33.3); Mean Corpuscular Volume 87.9 fL (83.0-100.0); Mean Platelet Volume 9.3 fL (9.4-12.4); Monocytes # 0.8 K/mcL (0.0-1.3); Monocytes % 8.1 %; Platelet Count 311 K/mcL (140-400); Red Blood Count 2.97 M/mcL (3.82-4.97); Red Cell Distribution Width 13.3 % (11.5-14.5); Segmented Neutrophils % 76.1 %
[2016-12-15 06:21] LABS: BUN/Creatinine Ratio 13 (6-26); Blood Urea Nitrogen 11 mg/dL (7-20); Calcium 8.4 mg/dL (8.6-10.8); Carbon Dioxide 29 mEq/L (19-29); Chloride 102 mEq/L (98-109); Glucose 113 mg/dL (70-99); Osmolality,Calculated 286 (280-300); Potassium 3.5 mEq/L (3.5-4.5); Sodium 138 mEq/L (136-145); eGFR For African Americans > 60 (> 60); eGFR For Non-African Americans > 60 (> 60)
[2016-12-15 07:21] VITALS: BP 157/94
--- NOTE | 2016-12-15 07:26 | Vascular/Endovas Progress Note ---
Date of Encounter: 12/15/16 Time of Encounter: 07:40 - Assessment and plan (1) Peripheral vascular disease with pain at rest Status: Acute The patient has a history of peripheral vascular disease. 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 She is tolerating a diet, her pedal pulses are palpable and her wounds are healing. She may be discharged from a vascular surgery standpoint. She will continue with home PT. She was advised to lift no more than 10 pounds for 1 month and 20 pounds for 2 months. (2) COPD (chronic obstructive pulmonary disease) Status: Chronic Qualifiers: COPD type: chronic bronchitis Chronic bronchitis type: simple Qualified Code(s): J41.0 - Simple chronic bronchitis (3) Tobacco abuse Status: Chronic She was counseled regarding smoking cessation. (4) Severe protein-calorie malnutrition Status: Chronic The patient has severe protein malnutrition. She was advised to take protein supplemental shakes between meals. (5) Anemia Status: Chronic The patient has chronic anemia with acute exptected postoperative blood loss anemia. She is hemodynamically stable and has no evidence of ongoing blood loss. Qualifiers: Anemia type: unspecified type Qualified Code(s): D64.9 - Anemia, unspecified - Subjective Interval history: The patient reports that she is comfortable today. She is feeling well and tolerating her diet. She denies any abdominal pain. She denies chest pain or shortness of breath. Vital Signs, Last 4 Hours Temp Pulse Resp BP Pulse Ox 12/15/16 07:17 98.4 F 79 20 157/94 96 12/15/16 04:17 16 97 - Physical Examination General: Present: Conversant, No Apparent Distress Neuro: Present: Alert and responsive, Sensory nerves grossly intact Vascular: Present: Pulse, normal, Surgical incisions (incisions healing well). Absent: Cyanosis, Edema Abdomen: Present: Soft, Other (bowel sounds present). Absent: Masses Skin: Present: No rashes noted on visualized skin - VTE Documentation of Mechanical Device: Intermittent pneumatic compression device Results 12/15/16 05:43 12/15/16 05:43 Lab Results, Last 24 hours 12/15/16 12/15/16 05:43 05:43 WBC 9.2 Hgb 8.4 L Hct 26.1 L Plt Count 311 Sodium 138 Potassium 3.5 Chloride 102 Carbon Dioxide 29 BUN 11 Creatinine 0.83 Glucose 113 H Calcium 8.4 L Consult Discharge Plan - Plan Instructions: Simvastatin (By mouth), Clopidogrel (By mouth), Angiogram (GEN), Aortofemoral Bypass (DC) Additional Instructions: NO LIFTING MORE THAN 10LBS FOR 2 WEEKS. NO DRIVING FOR 2 WEEKS. NO TUB BATH, SWIMMING POOL OR HOT TUB UNTIL INCISIONS HEAL. MONITOR INCISIONS FOR INFECTION ( WARM, RED, OR HAVE PUSS LIKE DRAINAGE) AND REPORT ANY FINDINGS TO DR. MURRAY'S OFFICE. YOU MAY SHOWER. KEEP INCISIONS OPEN TO AIR. DO NOT APPLY ANY CREAMS, LOTIONS, OR OINTMENTS TO INCISIONS. Referrals: Rayna Jeff, [employer]TER [Advanced Practice Nurse] - 12/18/16 2:00 pm (PLEASE TAKE THE NEW PATIENT PACKET FILLED OUT WITH YOU TO YOUR APPOINTMENT. PLEASE TAKE PICTURE ID, INSURANCE CARDS, AND ALL MEDICATIONS IN THE BOTTLES TO YOUR APPOINTMENT. SHOW UP 15 MINS EARLY. IF YOU HAVE TO CANCEL PLEASE CALL WITH IN 24 HOURS OF YOUR APPOINTMENT.) Gustavo Murray MD [Partnered Physician] - 01/18/17 1:00 pm Prescriptions: Oxycodone HCl/Acetaminophen [Percocet 10-325 mg Tablet] 1 each PO Q6HR PRN #15 PRN Reason: Pain Aspirin 81 mg PO DAILY #30 Ciprofloxacin HCl [Cipro] 500 mg PO BID #10 tablet Clopidogrel [Plavix] 75 mg PO DAILY #30 tablet metroNIDAZOLE [Flagyl] 500 mg PO TID #15 tablet Nicotine Patch [Nicoderm] 21 mg TD DAILY #30 Omeprazole 20 mg PO DAILY #30 tablet. Simvastatin [Zocor] 10 mg PO HS #60 tab
[2016-12-15] MEDS: Nicotine 21 MG PATCH.TD24 TD SCH (07:41)
[2016-12-15] MEDS: Potassium Chloride Elixir 20 MEQ/15 ML UDC PO SCH (07:42)
[2016-12-15] MEDS: Aspirin 81 MG TAB.CHEW PO SCH (07:42)
[2016-12-15] MEDS: Pantoprazole 40 MG VIAL IVP SCH (07:42)
--- NOTE | 2016-12-15 09:07 | Discharge Summary ---
Date of Encounter: 12/15/16 Time of Encounter: 09:04 - Discharge Diagnosis (1) Peripheral vascular disease with pain at rest Priority: Primary Status: Acute (2) Colitis Priority: Primary Status: Acute (3) Anemia Priority: Secondary Status: Chronic Qualifiers: Anemia type: unspecified type Qualified Code(s): D64.9 - Anemia, unspecified (4) COPD (chronic obstructive pulmonary disease) Priority: Secondary Status: Chronic Qualifiers: COPD type: chronic bronchitis Chronic bronchitis type: simple Qualified Code(s): J41.0 - Simple chronic bronchitis (5) Tobacco abuse Priority: Secondary Status: Chronic (6) H/O mitral valve replacement Priority: Secondary Status: Chronic (7) Anxiety Priority: Secondary Status: Chronic (8) Essential hypertension Priority: Secondary Status: Chronic - Discharge Medications Prescriptions: Oxycodone HCl/Acetaminophen [Percocet 10-325 mg Tablet] 1 each PO Q6HR PRN #15 PRN Reason: Pain Aspirin 81 mg PO DAILY #30 Ciprofloxacin HCl [Cipro] 500 mg PO BID #10 tablet Clopidogrel [Plavix] 75 mg PO DAILY #30 tablet metroNIDAZOLE [Flagyl] 500 mg PO TID #15 tablet Nicotine Patch [Nicoderm] 21 mg TD DAILY #30 Omeprazole 20 mg PO DAILY #30 tablet. Simvastatin [Zocor] 10 mg PO HS #60 tab Home Medications: Albuterol Neb [AccuNeb] 3 ml IH Q4-6H PRN 12/08/16 [History] Albuterol Sulfate [Proair Respiclick] 180 mcg IH QID PRN 12/08/16 [History] Gabapentin [Neurontin] 300 mg PO TID 12/08/16 [History] Lisinopril-HCTZ 10-12.5 [Prinzide 10-12.5] 1 tab PO DAILY 12/08/16 [History] Methocarbamol [Robaxin] 500 mg PO Q8H 12/08/16 [History] Metoprolol Tartrate [Lopressor] 50 mg PO BID 12/08/16 [History] Aspirin 81 mg PO DAILY #30 12/15/16 [Rx] Ciprofloxacin HCl [Cipro] 500 mg PO BID #10 tablet 12/15/16 [Rx] Clopidogrel [Plavix] 75 mg PO DAILY #30 tablet 12/15/16 [Rx] Nicotine Patch [Nicoderm] 21 mg TD DAILY #30 12/15/16 [Rx] Omeprazole 20 mg PO DAILY #30 tablet. 12/15/16 [Rx] Oxycodone HCl/Acetaminophen [Percocet 10-325 mg Tablet] 1 each PO Q6HR PRN #15 12/15/16 [Rx] Simvastatin [Zocor] 10 mg PO HS #60 tab 12/15/16 [Rx] metroNIDAZOLE [Flagyl] 500 mg PO TID #15 tablet 12/15/16 [Rx] Allergies/Adverse Reactions: 3 Allergy/AdvReac Type Severity Reaction Status Date / Time codeine Allergy Hives Verified 12/07/16 20:11 Penicillins [PCN] Allergy See Verified 12/07/16 20:11 Comments Procedures/tests Complete & Pending: Procedures Performed prior 72 hours Category Date Time Status Venous Doppler [EV venous imaging LE BI] Stat Y 12/13/16 13:36 Completed Date of admission: 12/08/16 12:34 Primary care physician: Edda Peña MD Consults: 12/11/16 14:43 Consult to Physical Therapy [CONS] Routine Comment: Evaluate, develop and implement POC Reason for Consult: s/p aortobifemoral bypass for severe PVD Discharging clinician: Carol Mandujano Anticipated date of discharge: 12/15/16 - Patient Status Disposition: Home, Self-Care Condition: Good Overall status at discharge: patient is progressing back to baseline - Discharge Instructions Instructions: Simvastatin (By mouth), Clopidogrel (By mouth), Angiogram (GEN), Aortofemoral Bypass (DC) Follow Up With: Rayna Jeff, CERTIFIED ACTIVITIES DIRECTOR [Advanced Practice Nurse] - 12/18/16 2:00 pm (PLEASE TAKE THE NEW PATIENT PACKET FILLED OUT WITH YOU TO YOUR APPOINTMENT. PLEASE TAKE PICTURE ID, INSURANCE CARDS, AND ALL MEDICATIONS IN THE BOTTLES TO YOUR APPOINTMENT. SHOW UP 15 MINS EARLY. IF YOU HAVE TO CANCEL PLEASE CALL WITH IN 24 HOURS OF YOUR APPOINTMENT.) Gustavo Murray MD [Partnered Physician] - 01/18/17 1:00 pm Additional Instructions: NO LIFTING MORE THAN 10LBS FOR 2 WEEKS. NO DRIVING FOR 2 WEEKS. NO TUB BATH, SWIMMING POOL OR HOT TUB UNTIL INCISIONS HEAL. MONITOR INCISIONS FOR INFECTION ( WARM, RED, OR HAVE PUSS LIKE DRAINAGE) AND REPORT ANY FINDINGS TO DR. MURRAY'S OFFICE. YOU MAY SHOWER. KEEP INCISIONS OPEN TO AIR. DO NOT APPLY ANY CREAMS, LOTIONS, OR OINTMENTS TO INCISIONS. - Diet and Activity Activity: increase activity as tolerated Diet: low fat, low cholesterol, low salt diet Hospital course: Ms. Chow is a 56 year old female with the above medical problems who was initially admitted with complaints of rectal bleeding. GI was consulted and patient underwent EGD and colonoscopy-showed diverticulosis in sigmoid colon and scattered inflammation around the sigmoid colon, suspicious for Mendoza's esophagus and small hiatal hernia. She was recommended to be started on empiric antibiotics-ciprofloxacin and Flagyl by GI. She was also noted to have an absent left femoral pulse and arterial studies demonstrated severe vascular disease on the left side. She also had bilateral iliac stents, which seemed to be malpositioned. She subsequently underwent aortogram and aortobifemoral bypass surgery and had some postoperative anemia, improved with PRBC transfusion. Physical therapy evaluation was done and recommended inpatient rehabilitation, which patient declined. She also declined home health services. She is otherwise medically stable for discharge with outpatient follow-up with primary care physician, cardiology and vascular surgery. Of note, patient has a history of bioprosthetic mitral valve replacement and underlying atrial fibrillation and ideally needs to be on anticoagulation with Coumadin, however has not been taking this for the last few months. Patient reports that she is in between doctors at this time due to insurance issues, however reports that she has an appointment coming up with a new primary care provider and would like to follow up as an outpatient to discuss more about anticoagulation. She understands the risks of being off anticoagulation. - Time Spent with Patient Total time spent providing and/or coordinating discharge services: Greater than 30 minutes (45 min) - Constitutional Vitals: Temp Pulse Resp BP Pulse Ox 98.4 F 85 20 157/94 96 12/15/16 07:17 12/15/16 07:35 12/15/16 07:17 12/15/16 07:17 12/15/16 07:17 General appearance: Present: cachectic, A&O X 3, answers questions appropriately - VTE Documentation of Mechanical Device: Intermittent pneumatic compression device
== END 2016-12-15 11:45 | disposition home or self-care (01) | DRG 270 ==
LOC: 3BNU 20:07 → EMEROO 20:07 → 3BNU 12-08 00:47 → 2NNU 12-08 12:33 → SUATTDRO 12-08 12:34
PROVIDERS: ADMIT Internal Medicine; ATTEND Internal Medicine
PROC: ENDOCBX (2016-12-09 13:30)
PROC: ENDOEBX (2016-12-09 13:30)